=== PATIENT | male | born 1960 | race Caucasian/White ===

== ENCOUNTER 2024-08-15 10:41 | Inpatient (IN) | payer MEDICARE, SELFPAY ==
[2024-08-15] VITALS (10 sets, daily range): BP systolic 106–144; BP diastolic 59–74; PULSE 71–101; RESP 10–21; TEMP 36.8–37; O2SAT 99–100; BMI 22.9
--- NOTE | 2024-08-15 11:02 | XR_ITS ---
Examination: CT abdomen and pelvis without contrast. Coronal 3-D reconstructions. Sagittal 2-D reconstructions. Date and time of exam:August 15, 2024 1542 hours INDICATIONS: Mid abdominal pain beginning 3 days ago CTDI: vol (mGy): 5.24 DLP: (mGycm): 7 Technique: Axial images of the abdomen have been obtained, 3 mm slice thickness Intravenous contrast material has not been administered. Low dose protocols were performed. One or more of the following dose reduction techniques were used; automated exposure control, adjustment of the mA and/or KV according to patient size, use of iterative reconstruction technique. Findings: Liver is irregular in contour Low density in the lower right lobe of the liver, 30 mm, axial image 64 Cholelithiasis, gallbladder wall appears thickened Suspicious for minimal edema around the pancreas Trace ascites Bilateral 1 to 3 mm renal calculi, no hydronephrosis Aorta normal size Portosystemic collateral vessels medial to the spleen No bowel obstruction Transverse prostate dimension 4.1 cm No bladder mass or bladder calculi Significant osteopenia Advanced degenerative disc disease L1-L2, L3-L4 IMPRESSION: Cirrhosis Recommend elective MRI liver follow-up pre and postcontrast to exclude 30 mm right lobe liver lesion Recommend hepatobiliary sonography to exclude cholecystitis and to assess for minimal peripancreatic edema Nonobstructing bilateral renal calculi
--- NOTE | 2024-08-15 11:02 | PD.EDRME ---
Rapid Medical Screening Exam RME Arrival date/time: 08/15/24 10:41 63-year-old male with no known medical history presents to the emergency room with a chief complaint of 7 out of 10 abdominal pain, vomiting blood, and dark tarry stool x 3 days I have greeted and performed a focused initial assessment of this patient. A comprehensive ED assessment and evaluation of the patient, analysis of all test results, and completion of the medical decision making process will be conducted by additional ED providers. Chief Complaint: Nausea/Vomiting/Diarrhea Time Seen by Provider: 08/15/24 10:55 Vital signs: Vital Signs Temperature 98.6 F 08/15/24 10:56 Pulse Rate 101 H 08/15/24 10:56 Respiratory Rate 16 08/15/24 10:56 Blood Pressure 106/70 08/15/24 10:56 Pulse Oximetry (%) 100 08/15/24 10:56 Oxygen Delivery Method Room Air 08/15/24 10:56 Vital signs reviewed by provider: Yes
[2024-08-15 11:33] LABS: Basophils # (Auto) 0.1 Thou/mm3 (0.0-0.2); Basophils % (Auto) 1 % (0-2.5); Eosinophils # (Auto) 0.2 Thou/mm3 (0.0-0.5); Eosinophils % (Auto) 1 % (0-10); Hematocrit 23.8 % (41.0-53.0); Immature Granulocytes % (Auto) 0 % (0-0); Immature Granulocytes Auto 0.03 Thou/mm3 (0.00-0.00); Lymphocytes # (Auto) 3.4 Thou/mm3 (1.0-4.8); Lymphocytes % (Auto) 31 % (10-50); Mean Corpuscular Hemoglobin 31.3 pg (25.0-35.0); Mean Corpuscular Volume 92 fL (80-100); Monocytes # (Auto) 0.8 Thou/mm3 (0.0-0.8); Monocytes % (Auto) 7 % (0-12); Neutrophils # (Auto) 6.7 Thou/mm3 (1.8-7.7); Neutrophils % (Auto) 60 % (37-80); Nucleated Red Blood Cell % 0 /100 WBC (0); Platelet Count 150 Thou/mm3 (140-440); RDW Standard Deviation 43.3 fL (35.1-43.9); Red Blood Count 2.59 Miln/mm3 (4.50-5.90); White Blood Count 11.2 Thou/mm3 (3.8-10.6)
[2024-08-15 11:43] LABS: Hemoglobin 8.1 g/dL (13.5-16.0)
[2024-08-15 11:44] LABS: INR 1.2 (0.9-1.3); Partial Thromboplastin Time 25.5 Seconds (22.0-36.0)
[2024-08-15 11:47] LABS: Alanine Aminotransferase 50 U/L (10-49); Albumin/Globulin Ratio 1.1 (1.2-2.2); Alkaline Phosphatase 62 U/L (46-116); Anion Gap 8 (7-16); Aspartate Amino Transferase 63 U/L (0-34); BUN/Creatinine Ratio 31 Ratio (12-20); Bilirubin,Total 1.1 mg/dL (0.3-1.2); Blood Urea Nitrogen 28 mg/dL (9-23); Calcium (Corrected) 9.8 mg/dL (8.5-10.1); Carbon Dioxide 22.9 mMol/L (20.0-31.0); Chloride 108 mMol/L (98-107); Creatinine (Component) 0.9 mg/dL (0.6-1.3); Globulin 2.8 gm/dL (2.3-3.5); Glucose 137 mg/dL (74-106); Osmolality,Calculated 285 (275-295); Sodium 139 mMol/L (136-145); Total Protein 5.8 gm/dL (5.7-8.2); eGFR > 60 See Note
--- NOTE | 2024-08-15 16:35 | PD.EDRME ---
Rapid Medical Screening Exam RME Arrival date/time: 08/15/24 10:41 08/15/24 10:41 63-year-old male with no known medical history presents to the emergency room with a chief complaint of 7 out of 10 abdominal pain, vomiting blood, and dark tarry stool x 3 days I have greeted and performed a focused initial assessment of this patient. A comprehensive ED assessment and evaluation of the patient, analysis of all test results, and completion of the medical decision making process will be conducted by additional ED providers. Chief Complaint: Nausea/Vomiting/Diarrhea Time Seen by Provider: 08/15/24 10:55 Vital signs: Vital Signs Temperature 98.6 F 08/15/24 10:56 Pulse Rate 101 H 08/15/24 10:56 Respiratory Rate 16 08/15/24 10:56 Blood Pressure 106/70 08/15/24 10:56 Pulse Oximetry (%) 100 08/15/24 10:56 Oxygen Delivery Method Room Air 08/15/24 10:56 RME Narrative: 08/15/24 10:41 63-year-old male with no known medical history presents to the emergency room with a chief complaint of 7 out of 10 abdominal pain, vomiting blood, and dark tarry stool x 3 days I have greeted and performed a focused initial assessment of this patient. A comprehensive ED assessment and evaluation of the patient, analysis of all test results, and completion of the medical decision making process will be conducted by additional ED providers.
--- NOTE | 2024-08-15 16:37 | EDNOTE_ITS ---
ED GI Bleed RME/HPI General Chief complaint: Nausea/Vomiting/Diarrhea Stated complaint: VOMITING BLOOD, DARK STOOL W/ BRIGHT RED BLOOD Time Seen by Provider: 08/15/24 10:55 Arrival date/time: 08/15/24 10:41 RME / HPI RME / HPI Narrative: Patient is a 63 years old male with PMH of alcohol abuse presented to the ED with a chief complaint of 7 out of 10 abdominal pain, vomiting blood, and dark tarry stool since Tuesday. He reports he was heavy drinker for 15 years but stopped several years ago and now drinks beer socially. He reports emesis were bloody and stool was black with some blood in it. He denies chest pain, SOB, fever or chills. He denies prior blood transfusions or using IV drugs. He smokes marijuana sometimes. Related Data Previous Rx's ?Medication ?Instructions ?Recorded propranolol 10 mg tablet 10 mg PO BID 1 month #60 tab s 08/20/24 Allergies Allergy/AdvReac Type Severity Reaction Status Date / Time No Known Allergies Allergy Verified 08/15/24 10:45 Review of Systems Review of Systems Systems Reviewed: All systems reviewed, normal except as documented Past Medical History Social History SMOKING STATUS: Former smoker SUBSTANCE USE: does not use ALCOHOL: Never ED Exam Narrative Physical exam: Gen: Well-developed and well-nourished male. HEENT: NCAT, PERRLA, EOMI, MMM, anicteric conjunctivae. CVS: normal S1 and S2. RRR. No M/R/G. Resp: CTA B/L. No rhonchi, rales, crackles or wheezing. Abd: soft, non-tender, non-distended. BS+ in all 4 quadrants. MSK: Good ROM in BUE & BLE. No edema or rash. Neuro: CN II-XII grossly intact. Strength 5/5 in BUE & BLE. Alert and oriented x3. Psych: appropriate mood and affect. Course Course Course Narrative: 1800: GI consulted, given protonix 80 mg IV and started on octreotide drip. Recommended admission for further evaluation and EGD. Quality Measures none Orders Category Date Time Status COVID-19 Screening Questionnaire NOW Care 08/15/24 18:08 Completed Decision to Admit X1 Care 08/15/24 18:08 Completed Consult to Gastroenterology Stat Cons 08/15/24 17:[address] abdomen pelvis wo con Stat Exams 08/15/24 11:02 Completed CBC Stat Lab 08/15/24 11:11 Completed CMP [Comprehensive Metabolic Panel] Stat Lab 08/15/24 11:11 Completed Hepatitis Acute Panel Stat Lab 08/15/24 11:11 Completed PT [Prothrombin Time with INR] Stat Lab 08/15/24 11:11 Completed PTT [Partial Thromboplastin Time] Stat Lab 08/15/24 11:11 Completed Path Review Blood Smear Stat Lab 08/15/24 11:11 Completed Reticulocyte Count Stat Lab 08/15/24 11:11 Completed Type and Screen Stat Lab 08/15/24 11:11 Completed Octreotide Acet Inj [SandoSTATIN Inj] Med 08/15/24 18:07 Discontinued 50 mcg IV X1 ONE Pantoprazole Inj [Protonix Inj] Med 08/15/24 18:07 Discontinued 80 mg IV X1 ONE Sodium Chloride 0.9% [Ns] 100 ml Med 08/15/24 18:15 Discontinued Octreotide Acet Inj [SandoSTATIN Inj] 1,000 mcg IV 50 mcg/hr Vital Signs Vital signs: Vital Signs Temperature 98.6 F 08/15/24 10:56 Pulse Rate 101 H 08/15/24 10:56 Respiratory Rate 16 08/15/24 10:56 Blood Pressure 106/70 08/15/24 10:56 Pulse Oximetry (%) 100 08/15/24 10:56 Oxygen Delivery Method Room Air 08/15/24 10:56 GI Bleed Patient data External records reviewed:: None (no previous visits) Clinical information provided by:: patient Social determinants that could affect healthcare access:: none Patient has the following chronic illnesses:: alcohol abuse How is presenting disease/condition affected by chronic disease/condition?: caused by Evaluation data The following diagnostics were reviewed and interpreted by me:: lab results and radiology exam(s) Lab and/or radiology exams considered but not ordered:: none Interpretation Summary: Procedure(s): CT abdomen pelvis wo con Accession Number(s): [id number] cc: Renzo Paz; Vladislav Vazquez MD; Josue Simmons MD~ Examination: CT abdomen and pelvis without contrast. Coronal 3-D reconstructions. Sagittal 2-D reconstructions. Date and time of exam:August 15, 2024 1542 hours INDICATIONS: Mid abdominal pain beginning 3 days ago CTDI: vol (mGy): 5.24 DLP: (mGycm): 7 Technique: Axial images of the abdomen have been obtained, 3 mm slice thickness Intravenous contrast material has not been administered. Low dose protocols were performed. One or more of the following dose reduction techniques were used; automated exposure control, adjustment of the mA and/or KV according to patient size, use of iterative reconstruction technique. Findings: Liver is irregular in contour Low density in the lower right lobe of the liver, 30 mm, axial image 64 Cholelithiasis, gallbladder wall appears thickened Suspicious for minimal edema around the pancreas Trace ascites Bilateral 1 to 3 mm renal calculi, no hydronephrosis Aorta normal size Portosystemic collateral vessels medial to the spleen No bowel obstruction Transverse prostate dimension 4.1 cm No bladder mass or bladder calculi Significant osteopenia Advanced degenerative disc disease L1-L2, L3-L4 IMPRESSION: Cirrhosis Recommend elective MRI liver follow-up pre and postcontrast to exclude 30 mm right lobe liver lesion Recommend hepatobiliary sonography to exclude cholecystitis and to assess for minimal peripancreatic edema Nonobstructing bilateral renal calculi Dictated By: Josue Simmons MD Medications / Prescriptions Medications or Prescriptions considered but not ordered:: none Medication administrations:: Medication Administration History Discontinued Medications Acetaminophen (Acetaminophen 325 Mg Tablet) 650 mg PO Q6H PRN PRN Reason: Fever >100 or pain 1-3 Stop: 09/14/24 20:06 Diphenhydramine HCl (Diphenhydramine Inj 50 Mg/Ml Vial) 25 mg IV [id number] PRN PRN Reason: MODERATE SEDATION Stop: 08/16/24 10:49 Diphenhydramine HCl (Diphenhydramine Inj 50 Mg/Ml Vial) Confirm Administered Dose 50 mg .ROUTE .STK-MED ONE Stop: 08/16/24 08:49 Fentanyl Citrate (Fentanyl Cit Inj 50 Mcg/Ml Amp 2ml) 50 mcg IV Q2M PRN PRN Reason: MODERATE SEDATION Stop: 08/16/24 10:49 Fentanyl Citrate (Fentanyl Cit Inj 50 Mcg/Ml Amp 2ml) Confirm Administered Dose 100 mcg .ROUTE .STK-MED ONE Stop: 08/16/24 08:49 Folic Acid (Folic Acid 1 Mg Tablet) 1 mg PO BID PAULA Stop: 08/21/24 08:59 Last Admin: 08/19/24 08:07 Dose: 1 mg Documented By: Admin: 08/18/24 21:25 Dose: 1 mg Documented By: Admin: 08/18/24 08:27 Dose: 1 mg Documented By: Admin: 08/17/24 20:35 Dose: 1 mg Documented By: Admin: 08/17/24 08:19 Dose: 1 mg Documented By: Admin: 08/16/24 20:16 Dose: 1 mg Documented By: Admin: 08/16/24 08:19 Dose: Not Given Documented By: TIKA Non-Admin Reason: NPO Octreotide Acetate 1,000 mcg/ (Sodium Chloride) 102 mls @ 5.1 mls/hr IV .Q20H ONE; Protocol Stop: 08/16/24 14:14 Last Admin: 08/15/24 18:56 Dose: 50 mcg/hr, 5.1 mls/hr Documented By: LARRY Pantoprazole Sodium (Protonix/Ns 80mg Iv Premix) 80 mg in 100 mls @ 10 mls/hr IV Q10H PAULA Stop: 08/18/24 18:09 Last Admin: 08/18/24 07:16 Dose: 10 mls/hr Documented By: Infusion: 08/18/24 07:16 Dose: Infused Documented By: Admin: 08/17/24 23:50 Dose: 10 mls/hr Documented By: Infusion: 08/17/24 23:50 Dose: Infused Documented By: Admin: 08/17/24 14:17 Dose: 10 mls/hr Documented By: Infusion: 08/17/24 13:53 Dose: Infused Documented By: Admin: 08/17/24 03:53 Dose: 10 mls/hr Documented By: Infusion: 08/17/24 01:42 Dose: Infused Documented By: Admin: 08/16/24 15:42 Dose: 10 mls/hr Documented By: Infusion: 08/16/24 15:00 Dose: Infused Documented By: Admin: 08/16/24 05:00 Dose: 10 mls/hr Documented By: Infusion: 08/16/24 05:00 Dose: Infused Documented By: Admin: 08/15/24 20:25 Dose: 10 mls/hr Documented By: THIERRY Ceftriaxone Sodium/Dextrose (Rocephin/D5w 1gm Iv Premix) 1 gm in 50 mls @ 100 mls/hr IV QDAY PAULA Stop: 08/23/24 08:59 Last Admin: 08/17/24 08:19 Dose: 100 mls/hr Documented By: Infusion: 08/16/24 08:54 Dose: Infused Documented By: Admin: 08/16/24 08:24 Dose: 100 mls/hr Documented By: TIKA Octreotide Acetate 1,000 mcg/ (Sodium Chloride) 102 mls @ 5.1 mls/hr IV .Q20H PAULA; Protocol Stop: 08/20/24 09:29 Last Admin: 08/20/24 05:20 Dose: 50 mcg/hr, 5.1 mls/hr Documented By: Infusion: 08/20/24 05:20 Dose: Infused Documented By: Admin: 08/19/24 10:28 Dose: 50 mcg/hr, 5.1 mls/hr Documented By: Infusion: 08/19/24 07:34 Dose: Infused Documented By: Admin: 08/18/24 11:34 Dose: 50 mcg/hr, 5.1 mls/hr Documented By: Infusion: 08/18/24 10:17 Dose: Infused Documented By: Admin: 08/17/24 14:17 Dose: 50 mcg/hr, 5.1 mls/hr Documented By: Infusion: 08/17/24 11:14 Dose: Infused Documented By: Admin: 08/16/24 15:14 Dose: 50 mcg/hr, 5.1 mls/hr Documented By: TIKA Magnesium Sulfate (Magnesium Sulfate Ivpb) 4 gm in 50 mls @ 12.5 mls/hr IV X1 ONE Stop: 08/17/24 12:00 Last Admin: 08/17/24 09:13 Dose: 12.5 mls/hr Documented By: DORIS Lorazepam (Lorazepam 0.5 Mg Tablet) 0.5 mg PO Q4HR PRN PRN Reason: CIWA Score 2-6 Stop: 08/21/24 08:08 Lorazepam (Lorazepam 0.5 Mg Tablet) 1 mg PO Q4HR PRN PRN Reason: CIWA SCORE 7-11 Stop: 08/21/24 08:08 Lorazepam (Lorazepam 0.5 Mg Tablet) 2 mg PO Q4HR PRN PRN Reason: CIWA SCORE 12-15 Stop: 08/21/24 08:08 Lorazepam (Lorazepam 2 Mg/Ml Vial) 1 mg IV X1 PRN PRN Reason: Breakthrough Agitation Midazolam HCl (Midazolam Inj 1 Mg/Ml Vial 2 Ml) 2 mg IV Q2M PRN PRN Reason: Moderate Sedation Stop: 08/16/24 10:49 Midazolam HCl (Midazolam Inj 1 Mg/Ml Vial 2 Ml) Confirm Administered Dose 4 mg .ROUTE .STK-MED ONE Stop: 08/16/24 08:49 Octreotide Acetate (Octreotide Acet Inj 50 Mcg/Ml Vial) 50 mcg IV X1 ONE Stop: 08/15/24 18:08 Last Admin: 08/15/24 18:55 Dose: 50 mcg Documented By: LARRY Ondansetron HCl (Ondansetron Inj 2 Mg/Ml Inj 2 Ml) 4 mg IV Q6H PRN; Protocol PRN Reason: NAUSEA OR VOMITING Stop: 09/14/24 20:06 Pantoprazole Sodium (Pantoprazole Inj 40 Mg Vial) 80 mg IV X1 ONE Stop: 08/15/24 18:08 Last Admin: 08/15/24 18:51 Dose: 80 mg Documented By: LARRY Thiamine HCl (Thiamine 100 Mg Tablet) 100 mg PO BID PAULA Stop: 08/21/24 08:59 Last Admin: 08/19/24 08:07 Dose: 100 mg Documented By: Admin: 08/18/24 21:25 Dose: 100 mg Documented By: Admin: 08/18/24 08:27 Dose: 100 mg Documented By: Admin: 08/17/24 20:35 Dose: 100 mg Documented By: Admin: 08/17/24 08:18 Dose: 100 mg Documented By: Admin: 08/16/24 20:16 Dose: 100 mg Documented By: Admin: 08/16/24 08:19 Dose: Not Given Documented By: TIKA Non-Admin Reason: NPO see above if any Consultations Consultation(s) initiated? (list below): Yes Consultation #1 (Physician, Specialty, Details): GI, Dr Mckeon, GIB. Diagnosis GI bleed differential diagnosis: hemorrhoids, esophageal varices, gastritis, Upper gastrointestinal hemorrhage and Lower gastrointestinal hemorrhage Most likely diagnosis given after review of the tests above:: Upper GI bleeding Admission Indicated Admission indicated?: indicated Explain why admission is indicated or not indicated:: GI bleeding, needs work up and EGD. Admission Request Was there a request for admission?: Yes Admission Attestation Admission request attestation: Discussed case with [] from Hospitalist service regarding admission. Discussed patients ED course, exam findings, labs, and radiology results. The Hospitalist [agrees,declines] to accept the patient for admission. Disposition Plan Disposition Plan: Admit Discharge Plan Plan Patient Disposition: Admit Acute Care w/in Hospital Patient condition on transfer: Stable Problem List Clinical Impression: Upper gastrointestinal hemorrhage Patient/Caregiver Discharge Instructions Diet Instructions: Avoid alcohol, as it can increase the risk of bleeding. Limit fatty and fried foods, as they can put stress on the liver. Avoid spicy and acidic foods, which can irritate the esophagus. Eat small, frequent meals instead of large ones. Chew food thoroughly before swallowing. PA/CASH APPLICATIONS ANALYST Supervising Physician PA/CASH APPLICATIONS ANALYST Supervising Physician: Delvis Riggs ENP, MD Attestation MD Attestation The patient was seen by the PGY-2. I, the supervising physician also encountered and examined the patient, remaining available for consultation as needed. With the PGY-2, I participated in the analysis and supervised the managment, treatment plan, medical decision making and documentation. I agree with the plan and documentation.
--- NOTE | 2024-08-15 17:05 | PC.NURSE ---
PT C/O ABD PAIN THAT STARTED 4 DAYS AGO WITH STOOL BEING BLACK THEN VOMITING BLOOD.
--- NOTE | 2024-08-15 17:07 | PC.NURSE ---
DR. ZACHARY Garcia. RESIDENT IN TO SEE PT
[2024-08-15] MEDS: PANTOPRAZOLE INJ 40 MG VIAL 80 MG IV (18:51)
[2024-08-15] MEDS: OCTREOTIDE ACET INJ 50 mCg/ML VIAL IV (18:55)
[2024-08-15] MEDS: OCTREOTIDE ACET INJ 1,000 MCG in SODIUM CHLORIDE 0.9% 100 ML 5.1 MCG IV (18:56)
--- NOTE | 2024-08-15 19:13 | EVENTNT_ITS ---
Documentation for date of: 08/15/24 Event Note Event Note: A 63-year-old male presented to the ER with the chief complaint of abdominal pain and hematemesis. He reports the onset of severe cramping and stabbing abdominal pain on Tuesday evening, followed by two episodes of hematemesis with fresh red blood and partially digested dark food. He also noted melena mixed with red blood in the stool, and subsequent episodes of diarrhea with continued black stools and blood. He describes progressive weakness, dizziness, shortness of breath, fever with chills and sweats, and poor oral intake over the following days. He attempted to manage symptoms at home but sought care on Tuesday due to worsening weakness. The patient has a history of alcohol abuse and reported daily or near-daily beer consumption since relapsing in 2016, following five years of sobriety. He used methamphetamine and cocaine in the past but has been abstinent from those substances for 12 years. He is not on any medications and has not been under routine medical care. Surgical history includes hernia repair in adolescence and evacuation of cranial blood clots following a head trauma in 1993. He reports nocturia and decreased urinary stream suggestive of BPH. 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 No known drug allergies. Last alcohol intake was Tuesday. In the ER, vital signs recorded as temp 98.6 F, HR 101, RR 16, BP 106/70 mmHg. Labs revealed WBC 11.2, Hb 8.1, Plt 150, INR 1.2, Na 139, K 4, BUN 28, Creatinine 0.9, Glucose 137, AST 63, ALT 50, Albumin 3. CT demonstrated cirrhosis, a 30 mm low-density lesion in the lower right hepatic lobe, and trace ascites. GI was consulted, and the patient was admitted for further management. Upper GI Bleed #Assessment: - Hematemesis, melena, hypotension with tachycardia (HR 101, BP 106/70) - Anemia (Hb 8.1), elevated BUN (28), normal Cr (0.9) ? BUN/Cr ratio >20 suggestive of UGIB - History of alcohol use disorder, cirrhosis on imaging, and low albumin (3.0) - Elevated AST > ALT; possible alcoholic liver disease - Hepatic lesion (30 mm low-density), trace ascites ? possible HCC or regenerative nodule #Plan: - Telemetry - NPO - Initiate IV fluid resuscitation - Transfuse PRBCs for Hb <7or hemodynamic instability - Start IV pantoprazole 80 mg bolus followed by continuous infusion (8 mg/hr) - Start octreotide IV infusion - Administer ceftriaxone 1g IV daily x5 days (SBP prophylaxis in suspected variceal bleed) - Type and crossmatch - GI consult obtained - Hepatitis panel, AFP level - Elective MRI liver follow-up - Psychiatric Nurse Practitioner patient on alcohol cessation; social work consult for substance use re sources
[2024-08-15 19:26] LABS: Hepatitis A Antibody IgM Non Reactive (Non React); Hepatitis B Core Antibody IgM Non Reactive (Non React); Hepatitis B Surface Antigen Non Reactive (Non React); Hepatitis C Antibody Reactive (Non React)
--- NOTE | 2024-08-15 19:32 | PD.EDADDENDU ---
Emergency Room Addendum Addendum Narrative: 1800: Care assumed from Dr. Powers, attending Dr. Mast. Past medical, surgical, social and family history reviewed. Vitals and home medications reviewed. Results and treatment plan discussed. I will assume the care of the patient at this time and will follow the patient, pending re-evaluation. Please refer to the emergency department record for history and examination from initi
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
[2024-08-15] MEDS: PANTOPRAZOLE/NS 80MG IV PREMIX 80 MG/100 ML BAG 10 MG IV (20:25)
[2024-08-15 20:36] LABS: Immature Reticulocyte Fraction 23.9 % (2.3-13.4); Reticulocyte % (Auto) 2.4 % (0.5-1.5); Reticulocyte Absolute Auto 63.4 Biln/L (25.0-75.0); Reticulocyte Hgb Content 36.5 pg (28.0-35.0)
[2024-08-15 21:10] LABS: Path Review Blood Smear Sent to Pathologist
--- NOTE | 2024-08-15 22:07 | PD.IMCONS ---
HPI Data of Consult Requesting Physician: Marcus Moy MD Primary Care Provider: Vladislav Vazquez MD Consult Narrative Reason for consult: Hematemesis, melena. History of present illness: 63 years old male seen in the ER at the request of the ER team with hematemesis and melanotic stools He does drink moderately the last time he drank was Tuesday about 4 beers He has been drinking for many years Admitting hemoglobin hematocrit was 8.1 and 23.8 with a platelet count of 158,000 BUN [address] scan of the abdomen pelvis without contrast showed 30 mm right lobe lesion cirrhosis of the liver Total bilirubin 1.1 AST ALT 63 and 50 and alk phos of 62 cc:: cc: Marcus Moy MD Review of Systems Review of Systems Systems Reviewed: All systems reviewed, normal except as documented Meds Home Medications and Allergies Allergies Allergy/AdvReac Type Severity Reaction Status Date / Time No Known Allergies Allergy Verified 08/15/24 10:45 Exam Vital Signs Temp Pulse Resp BP Pulse Ox O2 Del Method 98.2 F 89 15 132/65 H 100 Room Air 08/15/24 18:16 08/15/24 18:16 08/15/24 18:16 08/15/24 18:16 08/15/24 18:16 08/15/24 18:16 Constitutional Comments: Alert and oriented Routine Respiratory Exam Comments: Normal to auscultation Routine Abdominal Exam Comments: Soft nontender Results Labs 08/15/24 11:11 08/15/24 11:11 Labs: Short CBC 08/15/24 Range/Units 11:11 WBC 11.2 H (3.8-10.6) Thou/mm3 Hgb 8.1 L (13.5-16.0) g/dL Hct 23.8 L (41.0-53.0) % Plt Count 150 (140-440) Thou/mm3 BMP 08/15/24 11:11 Sodium 139 Potassium 4.0 Chloride 108 H Carbon Dioxide 22.9 BUN 28 H Creatinine 0.9 Glucose 137 H Calcium 9.0 Liver Function 08/15/24 Range/Units 11:11 Total Bilirubin 1.1 (0.3-1.2) mg/dL AST 63 H (0-34) U/L ALT 50 H (10-49) U/L Alkaline Phosphatase 62 (46-116) U/L Albumin 3.0 L (3.4-4.8) gm/dL Assessment and Plan Additional Assessment & Plan Additional Plan: # Hematemesis # melena Plan IV Protonix octreotide 50 mcg IV push and then 50 mcg/h infusion serial CBC Transfuse if the hemoglobin drops below 7 g Fiberoptic esophagogastroduodenoscopy with possible biopsy possible therapeutic intervention with intravenous moderate sedation Informed consent obtained the patient is scheduled for tomorrow morning at 830 Other medical problems include # Cirrhotic liver disease secondary to alcohol # 30 mm lesion in the right lobe of the liver AFP MRI scan of the liver with and without contrast 4 PHASE Advised complete abstinence from alcohol Avoid NSAIDs Thank you very much for the opportunity to participate in the care of this patient
[2024-08-15 22:26] LABS: Iron 24 mcg/dL (65-175); Percent Iron Saturation 9 % (20-55); Total Iron Binding Capacity 265 mcg/dL (250-425); Unsaturated Iron Binding 241 (225-295)
--- NOTE | 2024-08-15 23:23 | PC.NURSE ---
Report called. Pt taken to rm 358 by myself on cardiuac monitor.
[2024-08-16] VITALS (24 sets, daily range): BP systolic 104–142; BP diastolic 60–88; PULSE 65–87; RESP 8–20; TEMP 36.2–37; O2SAT 96–100; BMI 19.1
[2024-08-16] MEDS: PANTOPRAZOLE/NS 80MG IV PREMIX 80 MG/100 ML BAG 10 MG IV ×2 (05:00→15:42)
[2024-08-16 05:41] LABS: Basophils % (Auto) 1 % (0-2.5); Eosinophils # (Auto) 0.1 Thou/mm3 (0.0-0.5); Eosinophils % (Auto) 3 % (0-10); Immature Granulocytes % (Auto) 0 % (0-0); Immature Granulocytes Auto 0.01 Thou/mm3 (0.00-0.00); Lymphocytes # (Auto) 2.2 Thou/mm3 (1.0-4.8); Lymphocytes % (Auto) 42 % (10-50); Mean Corpuscular HGB Conc 34.2 g/dl (31.0-37.0); Mean Corpuscular Hemoglobin 31.7 pg (25.0-35.0); Mean Corpuscular Volume 93 fL (80-100); Monocytes # (Auto) 0.5 Thou/mm3 (0.0-0.8); Monocytes % (Auto) 9 % (0-12); Neutrophils # (Auto) 2.4 Thou/mm3 (1.8-7.7); Neutrophils % (Auto) 46 % (37-80); Nucleated Red Blood Cell % 0 /100 WBC (0); Platelet Count 89 Thou/mm3 (140-440); RDW Standard Deviation 43.8 fL (35.1-43.9); Red Blood Count 2.18 Miln/mm3 (4.50-5.90); White Blood Count 5.1 Thou/mm3 (3.8-10.6)
[2024-08-16 05:52] LABS: INR 1.3 (0.9-1.3); Partial Thromboplastin Time 26.2 Seconds (22.0-36.0); Prothrombin Time 13.8 Seconds (9.0-12.2)
[2024-08-16 05:55] LABS: Hemoglobin 6.9 g/dL (13.5-16.0)
[2024-08-16 05:56] LABS: Hematocrit 20.2 % (41.0-53.0)
[2024-08-16 06:13] LABS: Alanine Aminotransferase 51 U/L (10-49); Albumin, Serum 2.6 gm/dL (3.4-4.8); Albumin/Globulin Ratio 1.1 (1.2-2.2); Alkaline Phosphatase 56 U/L (46-116); Anion Gap 8 (7-16); Aspartate Amino Transferase 69 U/L (0-34); BUN/Creatinine Ratio 26 Ratio (12-20); Bilirubin,Total 1.1 mg/dL (0.3-1.2); Blood Urea Nitrogen 26 mg/dL (9-23); Calcium 8.1 mg/dL (8.3-10.6); Calcium (Corrected) 9.2 mg/dL (8.5-10.1); Carbon Dioxide 24.2 mMol/L (20.0-31.0); Cardiac Risk Estimate 4.2 RATIO (4.0-6.7); Chloride 109 mMol/L (98-107); Cholesterol 84 mg/dL (132-200); Globulin 2.3 gm/dL (2.3-3.5); Glucose 127 mg/dL (74-106); HDL Cholesterol 20 mg/dL (40-60); LDL Cholesterol,Calculated 45 mg/dL (0-130); Magnesium 1.8 mg/dL (1.6-2.6); Osmolality,Calculated 287 (275-295); Phosphorous 3.2 mg/dL (2.4-5.1); Potassium 4.1 mMol/L (3.4-5.1); Sodium 141 mMol/L (136-145); Thyroid Stimulating Hormone 0.37 uIU/mL (0.55-4.78); Total Protein 4.9 gm/dL (5.7-8.2); Triglycerides 95 mg/dL (30-150); eGFR > 60 See Note
[2024-08-16 07:38] LABS: Glucose Estimated Average 111 mg/dL (80-131); Hemoglobin A1C 5.5 % Hgb (4.8-6.0)
[2024-08-16] MEDS: cefTRIAXone/D5w 1gm IV premix 1 GM/50 ML BAG IV (08:24)
--- NOTE | 2024-08-16 08:52 | XR_ITS ---
Examination: MRI abdomen with intravenous contrast. MRI abdomen without intravenous contrast. Date and time of exam: August 16, 2024 1653 hours INDICATIONS: Abdominal pain 3 days, diagnosis cirrhosis, 30 mm low-density right lobe liver lesion on CT abdomen and pelvis study August 15, 2024 Technique: Multiple axial, sagittal and coronal sections of the abdomen obtained. Transverse images, TR 6020, TE 107. T1 weighted transverse images, TR 582, TE 9.5. T2-weighted sagittal images, TR 4000, TE 105. T2-weighted sagittal images, TR 4000, TE 5. Coronal images, TR 4210, TE 107. Axial and coronal images are obtained post 19 cc intravenous injection, gadolinium. Findings: Cirrhosis, liver nodular in contour Precontrast images do not demonstrate a definite right lobe or left lobe liver lesion Prominent splenomegaly Small gallstones Marked wall thickening and edema involving the gallbladder No common hepatic or common bile duct stones Mild ascites Postcontrast images do not confirm an enhancing liver lesion No enhancing renal lesion, no abdominal lymphadenopathy Abdominal aorta normal size IMPRESSION: Cirrhosis, no liver lesions confirmed Prominent splenomegaly Cholelithiasis, marked wall thickening and edema involving the gallbladder, assessment of the gallbladder wall limited secondary to the patient's ascites Consider HIDA scan follow-up to confirm cystic duct obstruction
[2024-08-16 08:54] LABS: HIV (1&2) Antibody Rapid Non-Reactive
--- NOTE | 2024-08-16 09:33 | SUR.PHASEI ---
0933: Pt. wakes to name then drifts back to sleep, vitals stable, breathing unlabored, no signs of distress, no dressing in place, no active bleed noted, report received from Nida SHOEMAKER.
--- NOTE | 2024-08-16 09:57 | SUR.PHASEI ---
0957: Pt. AAOx4, vitals stable, breathing unlabored, no complaint of pain or nausea, no dressing in place, no active bleed noted, pt. tolerated sips of water well, gave report to Eufemia SHOEMAKER prior to transfer to room 358.
[2024-08-16 10:54] LABS: Free T4 (Free Thyroxine) 0.86 ng/dL (0.89-1.76)
--- NOTE | 2024-08-16 13:37 | ESPR_ITS ---
<Statement entered by Judy Cruz MD - 08/17/24 07:44> Patient was seen and examined by me personally. I have directly supervised and reviewed documentation by the team resident and agree with its findings with any exceptions or additional findings as below. Plan of care was discussed with the attending, Dr. Howell. Overnight admission. Patient is a 63-year-old male with past medical history of polysubstance use disorder, alcohol use disorder, hepatitis C, and cirrhosis who presented to the hospital on 08/15/2024 with melena and hematemesis and patient was subsequently admitted for upper GI bleed likely secondary to alcohol induced cirrhosis. Patient underwent EGD which showed grade 2 esophageal varices which were subsequently banded. Patient will require 5 days of octreotide infusion. Judy Cruz, PGY-2 Documentation for date of: 08/16/24 Subjective Subjective Interval history: 08/16/2024: Overnight admission for 63-year-old male with past medical history of polysubstance use disorder, alcohol use disorder, hepatitis C, cirrhosis who presented to the hospital with melena and hematemesis; moreover, admitted for upper GI bleed likely secondary to alcohol induced cirrhosis. Patient completed EGD with Dr. Mckeon which showed grade 2 esophageal varices which were banded, gastritis with hemorrhage. Patient will require IV octreotide drip for 5 days and diet will be slowly advanced as tolerated. Patient will obtain an MRI abdomen with and without contrast for high suspicion of liver neoplasm as noted by increased AFP, high risk factor with cirrhosis and hepatitis C. Patient could benefit from infectious disease workup and treatment for hepatitis C. Will continue to monitor the patient for any acute changes. Exam Vital Signs Temp Pulse Resp BP Pulse Ox O2 Del Method O2 Flow Rate 97.8 F 73 20 121/82 99 Room Air 3 08/16/24 12:48 08/16/24 12:48 08/16/24 12:48 08/16/24 12:48 08/16/24 12:48 08/16/24 12:00 08/16/24 09:25 Narrative Exam Physical Exam: General: Awake, pleasant elderly male, appears in stated age HEENT: Dry mucous membranes, conjunctiva clear, EOMI, PERRLA, poor dentition Cardiovascular: Ejection systolic murmur heard best over left upper sternal border, radiates to the carotids, radial pulses +2 bilat, RRR Pulmonary: CTAB bilat no cough, no wheezing GI: No tenderness to light or deep palpitation, no guarding, rigidity, rebound tenderness or distension Extremities: No presence of trace or pitting edema in lower extremities bilaterally, dorsalis pedis pulses +2 bilaterally, no track conte visualized Neuro: AAOx3, no focal motor or sensory deficits in the UE or LE bilat Objective Labs 08/16/24 04:35 08/16/24 04:35 Labs: Laboratory Results - last 24 hr 08/15/24 08/16/24 11:11 04:35 WBC 5.1 D RBC 2.18 L Hgb 6.9 L* Hct 20.2 L* MCV 93 MCH 31.7 MCHC 34.2 RDW Std Deviation 43.8 Plt Count 89 L D Neut % (Auto) 46 Lymph % (Auto) 42 [place] % (Auto) 9 Eos % (Auto) 3 Baso % (Auto) 1 Neut # (Auto) 2.4 Lymph # (Auto) 2.2 [place] # (Auto) 0.5 Eos # (Auto) 0.1 Baso # (Auto) 0.0 Immature Gran # (Auto) 0.01 H Absolute Nucleated RBC 0.00 Immature Gran % 0 Nucleated RBC % 0 Smear Path Review Sent to Pathologist Retic Count (auto) 2.4 H Absolute Retic 63.4 Immature Retic Fraction 23.9 H Retic Hgb Content CHr 36.5 H PT 13.8 H INR 1.3 APTT 26.2 Sodium 141 Potassium 4.1 Chloride 109 H Carbon Dioxide 24.2 Anion Gap 8 BUN 26 H Creatinine 1.0 Estim Creat Clear Calc 63.0 eGFR > 60 BUN/Creatinine Ratio 26 H Glucose [address] Glu mg/dL 111 Hemoglobin A1c 5.5 Calculated Osmolality 287 Calcium 8.1 L Corrected Calcium 9.2 Phosphorus 3.2 Magnesium 1.8 Iron 24 L TIBC 265 Iron Saturation 9 L Unsat Iron Binding 241 Total Bilirubin 1.1 AST 69 H ALT 51 H Alkaline Phosphatase 56 Total Protein 4.9 L Albumin 2.6 L Globulin 2.3 Albumin/Globulin Ratio 1.1 L Triglycerides 95 Cholesterol 84 L LDL Cholesterol, Calc 45 HDL Cholesterol 20 L Cholesterol/HDL Ratio 4.2 Tumor Marker AFP 69.10 H TSH 0.37 L Free T4 0.86 L Hepatitis A IgM Ab Non Reactive Hep Bs Antigen Non Reactive Hep B Core IgM Ab Non Reactive Hepatitis C Antibody Reactive A HIV 1&2 Antibody Rapid Non-Reactive Blood Type A Positive Antibody Screen NEGATIVE Crossmatch See Detail Blood Bank Wristband ID Yes Quality Measures Quality Measures none Advance care planning discussed with:: patient Assessment & Plan Assessment Current Active Medications: Generic Name Dose Route Start Last Admin Trade Name Freq PRN Reason Stop Dose Admin Acetaminophen 650 mg 08/15/24 20:07 Acetaminophen 325 Mg Tablet PO 09/14/24 20:06 Q6H PRN Fever >100 or pain 1-3 Folic Acid 1 mg 08/16/24 09:00 08/16/24 08:19 Folic Acid 1 Mg Tablet PO 08/21/24 08:59 Not Given BID PAULA Pantoprazole Sodium 80 mg in 100 mls @ 10 mls/hr 08/15/24 20:10 08/16/24 05:00 Protonix/Ns 80mg Iv Premix IV 08/18/24 18:09 10 mls/hr Q10H PAULA Administration Ceftriaxone Sodium/Dextrose 1 gm in 50 mls @ 100 mls/hr 08/16/24 09:00 08/16/24 08:24 Rocephin/D5w 1gm Iv Premix IV 08/23/24 08:59 100 mls/hr QDAY PAULA Administration Octreotide Acetate 1,000 mcg/ 102 mls @ 5.1 mls/hr 08/16/24 09:30 Sodium Chloride IV 08/20/24 09:29 .Q20H PAULA Protocol 50 MCG/HR Lorazepam 0.5 mg 08/16/24 08:09 Lorazepam 0.5 Mg Tablet PO 08/21/24 08:08 Q4HR PRN CIWA Score 2-6 Lorazepam 1 mg 08/16/24 08:09 Lorazepam 0.5 Mg Tablet PO 08/21/24 08:08 Q4HR PRN CIWA SCORE 7-11 Lorazepam 2 mg 08/16/24 08:09 Lorazepam 0.5 Mg Tablet PO 08/21/24 08:08 Q4HR PRN CIWA SCORE 12-15 Lorazepam 1 mg 08/16/24 08:09 Lorazepam 2 Mg/Ml Vial IV X1 PRN Breakthrough Agitation Ondansetron HCl 4 mg 08/15/24 20:07 Ondansetron Inj 2 Mg/Ml Inj 2 Ml IV 09/14/24 20:06 Q6H PRN NAUSEA OR VOMITING Protocol Thiamine HCl 100 mg 08/16/24 09:00 08/16/24 08:19 Thiamine 100 Mg Tablet PO 08/21/24 08:59 Not Given BID PAULA Plan 63-year-old male with past medical history of polysubstance use disorder, alcohol use disorder, hepatitis C, cirrhosis who presented to the hospital with melena and hematemesis; moreover, admitted for upper GI bleed likely secondary to alcohol induced cirrhosis #Upper GI Bleed #Esophageal varices secondary to cirrhosis, alcohol induced #Acute blood loss anemia #Symptomatic anemia Hematemesis, melena, hypotension with tachycardia (HR 101, BP 106/70) Anemia (Hb 8.1), elevated BUN (28), normal Cr (0.9) ? BUN/Cr ratio >20 suggestive of UGIB History of alcohol use disorder, cirrhosis on imaging, and low albumin (3.0) Elevated AST > ALT; possible alcoholic liver disease Hepatic lesion (30 mm low-density), trace ascites ? possible HCC or regenerative nodule NSAID use: Uses NSAIDS, last time was yesterday Iron panel shows: Iron of 24, TIBC 265, iron saturation 9% and reticulocyte count is elevated as expected EGD completed with Dr. Mckeon on 03/18 showed grade 2 esophageal varices which were banded, gastritis with hemorrhage Plan: Liquid diet, advance as tolerated Transfuse PRBCs for Hb <7or hemodynamic instability IV octreotide day 1 of 5 Continue protonix IV Rocephin 1g IV daily x5 days (SBP prophylaxis in suspected variceal bleed) GI consulted, appreciate recs Pending peripheral blood smear Avoid any NSAIDs #Cirrhosis #Hepatitis C positive #Liver lesion Hepatic lesion (30 mm low-density), trace ascites ? possible HCC or regenerative nodule Hepatitis C was positive on blood draw today HCC could be possible due to drug hx and hepatitis C CT also shows cirrhosis of liver AFP elevated 69.10; normal is less than 8.10 HIV nonreactive Plan: Infectious disease consulted for Hepatitis C MRI with and without contrast of the abdomen ordered Trend PT/INR, PTT #Alcohol use disorder Was in remission from 1023-1309 Patient apparently drinks around 6 beers 4-5 times a week Last drink was 08/11 per patient Plan: CIWA protocol Folic and Thiamine supplementation #Hypothyroidism Likely secondary to pituitary adenoma versus tertiary hypothyroidism Patient's TSH 0.37 and free T4 0.86 Patient is not on any medications at this time Plan: Will consider ordering thyroid antibodies Prolactin level for pituitary adenoma Follow-up outpatient with PCP and possible endocrinology referral Hospital Management: Lines: PIV Diet: Clear liquid, advancing to low-sodium on 08/17 Bowel: Not needed at this time GI prophylaxis: On Protonix and octreotide DVT prophylaxis: SCD Dispo: Needs to complete 5 days of octreotide drip for esophageal varices, and workup for possible HCC Code: Full Patient seen and examined with attending Dr. Howell and senior resident Dr. Anthony Renner, PGY-1 Attending Provider Attestation/Addendum I attest that I was physically present for the evaluation, physical examination, lab and imaging review of the patient with the residents. I discussed the case with the residents and agree with the findings and plans of care as documented above. Patient is a 63 years old male with past medical history of polysubstance use disorder, alcohol use disorder, hepatitis C, liver cirrhosis who was admitted overnight for management of upper GI bleeding and blood loss anemia. Patient was started on octreotide, Protonix, Rocephin overnight. He underwent upper GI endoscopy, was found to have esophageal varices which were banded, also had gastritis with hemorrhage. Patient has been started on clear liquid diet, tolerating well. States that he has been feeling well and denies any new complaints except for mild lightheadedness from anesthesia. Hemoglobin noted to be 6.9 this morning, patient is receiving 1 unit of PRBC transfusion. We will follow-up with posttransfusion H&H. Vital signs are stable. chemistry panel is also stable except for mild elevation in liver enzymes. Patient has a right lower lobe liver lesion on CT abdomen/pelvis also has elevated AFP 69.1, we will obtain liver MRI. Patient also tested positive for hepatitis C antibody, we will obtain ID consult. Patient also drinks regularly, currently does not have any withdrawal symptoms, we will start him on CIWA protocol. Deborah Howell MD
--- NOTE | 2024-08-16 13:56 | PC.SS ---
Yvette Markham is a 63-year-old male admitted to [facility] for GI Bleed. SS conducted bedside contact with the patient to complete initial assessment and to discuss discharge planning.? Patient confirmed demographic information. Patient identifies his sister Freda Lord [phone] as his surrogate decision maker. Patient resides at home with alone. Pt states he is able to complete all ADL?s independently, no need for any source of DME. Pts PCP is Dr. Vazquez [facility] (last visit about 3 years ago) and pharmacy of choice is [facility]. DC option discussed and pt wishes to return home. Pts fam will provide transportation upon DC. No further intervention required at this time, social media marketing manager would be available to address any further concerns. DC Plan: Home Contact: Sister Freda PCP: George
[2024-08-16] MEDS: OCTREOTIDE ACET INJ 1,000 MCG in SODIUM CHLORIDE 0.9% 100 ML 5.1 MCG IV (15:14)
--- NOTE | 2024-08-16 15:21 | PC.SS ---
Rounding: Pt needs 5 days of Octreotide
[2024-08-16 16:34] LABS: Hemoglobin 8.2 g/dL (13.5-16.0)
[2024-08-16] MEDS: THIAMINE 100 MG TABLET PO (20:16)
[2024-08-16] MEDS: FOLIC ACID 1 MG TABLET PO (20:16)
[2024-08-17] VITALS: BP 121/69; PULSE 66; PULSE 80; RESP 18; TEMP 36.4; O2SAT 99
[2024-08-17] MEDS: PANTOPRAZOLE/NS 80MG IV PREMIX 80 MG/100 ML BAG 10 MG IV ×3 (03:53→23:50)
[2024-08-17 04:00] VITALS: BP 123/75; PULSE 67; PULSE 75; RESP 18; TEMP 36.4; O2SAT 99
[2024-08-17 06:34] LABS: Basophils % (Auto) 1 % (0-2.5); Eosinophils # (Auto) 0.2 Thou/mm3 (0.0-0.5); Eosinophils % (Auto) 5 % (0-10); Immature Granulocytes % (Auto) 0 % (0-0); Immature Granulocytes Auto 0.01 Thou/mm3 (0.00-0.00); Lymphocytes # (Auto) 1.6 Thou/mm3 (1.0-4.8); Lymphocytes % (Auto) 44 % (10-50); Mean Corpuscular HGB Conc 35.2 g/dl (31.0-37.0); Mean Corpuscular Hemoglobin 31.5 pg (25.0-35.0); Mean Corpuscular Volume 90 fL (80-100); Monocytes # (Auto) 0.3 Thou/mm3 (0.0-0.8); Monocytes % (Auto) 8 % (0-12); Neutrophils # (Auto) 1.5 Thou/mm3 (1.8-7.7); Neutrophils % (Auto) 42 % (37-80); Nucleated Red Blood Cell % 0 /100 WBC (0); Platelet Count 88 Thou/mm3 (140-440); RDW Standard Deviation 45.2 fL (35.1-43.9); Red Blood Count 2.79 Miln/mm3 (4.50-5.90); White Blood Count 3.7 Thou/mm3 (3.8-10.6)
[2024-08-17 07:05] LABS: Alanine Aminotransferase 56 U/L (10-49); Albumin, Serum 2.5 gm/dL (3.4-4.8); Alkaline Phosphatase 57 U/L (46-116); Anion Gap 9 (7-16); Aspartate Amino Transferase 75 U/L (0-34); BUN/Creatinine Ratio 15 Ratio (12-20); Bilirubin,Total 1.4 mg/dL (0.3-1.2); Blood Urea Nitrogen 17 mg/dL (9-23); Calcium 7.9 mg/dL (8.3-10.6); Calcium (Corrected) 9.1 mg/dL (8.5-10.1); Carbon Dioxide 22.6 mMol/L (20.0-31.0); Chloride 109 mMol/L (98-107); Creatinine (Component) 1.1 mg/dL (0.6-1.3); Estimated Creatinine Clearance 57.3 mL/min (>60); Globulin 2.5 gm/dL (2.3-3.5); Glucose 103 mg/dL (74-106); Magnesium 1.8 mg/dL (1.6-2.6); Osmolality,Calculated 282 (275-295); Phosphorous 3.4 mg/dL (2.4-5.1); Sodium 141 mMol/L (136-145); eGFR > 60 See Note
[2024-08-17 07:45] LABS: Hemoglobin 8.8 g/dL (13.5-16.0)
[2024-08-17 08:00] VITALS: BP 118/67; PULSE 72; PULSE 79; RESP 17; TEMP 36.2; O2SAT 96
[2024-08-17] MEDS: THIAMINE 100 MG TABLET PO ×2 (08:18→20:35)
[2024-08-17] MEDS: FOLIC ACID 1 MG TABLET PO ×2 (08:19→20:35)
[2024-08-17] MEDS: cefTRIAXone/D5w 1gm IV premix 1 GM/50 ML BAG IV (08:19)
[2024-08-17] MEDS: Magnesium Sulfate 4 GM Ivpb 4 GM/50 ML BAG IV (09:13)
--- NOTE | 2024-08-17 09:40 | PD.IDPROG ---
Subjective Subjective Interval history: asked to see for hep c rx. sadly, drugs cose 60-90k for 12 weeks rx and although very effective are very expensive so rx is an outpt thing. he already has cirrhosis so may not qualify for hep c rx. has a liver mass as well Exam Vital Signs Temp Pulse Resp BP Pulse Ox O2 Del Method O2 Flow Rate 97.1 F 79 17 118/67 96 Room Air 3 08/17/24 08:00 08/17/24 08:00 08/17/24 08:00 08/17/24 08:00 08/17/24 08:00 08/16/24 16:00 08/16/24 16:00 Narrative Exam no annie ascites. no edema. no bc done. and no fever, so value of abx seems low Objective - Internal Medicine Labs 08/17/24 05:48 08/17/24 05:48 Labs: Laboratory Results - last 24 hr 08/15/24 08/16/24 08/16/24 11:11 04:35 15:47 WBC RBC Hgb 8.2 L Hct 24.0 L MCV MCH MCHC RDW Std Deviation Plt Count Neut % (Auto) Lymph % (Auto) [place] % (Auto) Eos % (Auto) Baso % (Auto) Neut # (Auto) Lymph # (Auto) [place] # (Auto) Eos # (Auto) Baso # (Auto) Immature Gran # (Auto) Absolute Nucleated RBC Immature Gran % Nucleated RBC % Sodium Potassium Chloride Carbon Dioxide Anion Gap BUN Creatinine Estim Creat Clear Calc eGFR BUN/Creatinine Ratio Glucose Calculated Osmolality Calcium Corrected Calcium Phosphorus Magnesium Total Bilirubin AST ALT Alkaline Phosphatase Total Protein Albumin Globulin Albumin/Globulin Ratio Free T4 0.86 L Blood Type A Positive Antibody Screen NEGATIVE Crossmatch See Detail Blood Bank Wristband ID Yes 08/17/24 05:48 WBC 3.7 L RBC 2.79 L Hgb 8.8 L Hct 25.0 L MCV 90 MCH 31.5 MCHC 35.2 RDW Std Deviation 45.2 H Plt Count 88 L Neut % (Auto) 42 Lymph % (Auto) 44 [place] % (Auto) 8 Eos % (Auto) 5 Baso % (Auto) 1 Neut # (Auto) 1.5 L Lymph # (Auto) 1.6 [place] # (Auto) 0.3 Eos # (Auto) 0.2 Baso # (Auto) 0.0 Immature Gran # (Auto) 0.01 H Absolute Nucleated RBC 0.00 Immature Gran % 0 Nucleated RBC % 0 Sodium 141 Potassium 4.0 Chloride 109 H Carbon Dioxide 22.6 Anion Gap 9 BUN 17 Creatinine 1.1 Estim Creat Clear Calc 57.3 L eGFR > 60 BUN/Creatinine Ratio 15 Glucose 103 Calculated Osmolality 282 Calcium 7.9 L Corrected Calcium 9.1 Phosphorus 3.4 Magnesium 1.8 Total Bilirubin 1.4 H AST 75 H ALT 56 H Alkaline Phosphatase 57 Total Protein 5.0 L Albumin 2.5 L Globulin 2.5 Albumin/Globulin Ratio 1.0 L Free T4 Blood Type Antibody Screen Crossmatch Blood Bank Wristband ID Assessment & Plan A&P Narrative hep c. liver mass, not seen on subsequent mri though. u/s may be a better imaging modality for that process gi bleeding cirrhosis with varices hep c rx is never started in hospital due to cost. no hospital worldwide carries the meds as far as I know. cost if 60-90k for 12 weeks and it does not reverse cirrhosis. stopped the rocephin as no eval for bacteremia done and no fever. home at your discretion avoid etoh completely in the future. it takes 5-7d for the labs to return and they will not be sent out till tuesday, so there is no point in him waiting here. note that hiv neg and never incarcerated or used iv drugs. 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 Time Spent With Patient Time: Total time spent is greater than 50% in coordination of care (as documented) at patient's floor/unit and/or counseling patient:
[2024-08-17 11:34] VITALS: BMI 19.1
[2024-08-17 12:00] VITALS: BP 104/61; PULSE 65; PULSE 78; RESP 16; TEMP 36.9; O2SAT 95
--- NOTE | 2024-08-17 12:21 | ESCONSULT_ITS ---
RE: JAY SANON : 1960 DATE OF CONSULTATION: 08/17/2024 REFERRING PHYSICIAN: Dr. Moy. REASON FOR CONSULTATION: Hepatitis C positive in a patient with cirrhosis. HISTORY OF PRESENT ILLNESS: The patient is a 63-year-old with no known risk factors for hepatitis C. He has not been incarcerated, has not used injection drugs and has not had any sex with men. His last sexual encounter was some time ago. He has been for about 15- 20 years. He is anemic. He drinks a couple of beers a day at least and is hep C positive, but it is unclear if he has had any treatment before. He seemed unaware of the hepatitis C diagnosis. SURGICAL HISTORY: Included distant bilateral hernia repair as a child and subsequent closed head injury with internal bleeding in 1993, requiring brain surgery at [facility] and EGD this admission. ALLERGIES: NONE NOTED. IMMUNIZATIONS: Last tetanus is not known. He had one COVID vaccine. He does not take a flu shot every year. He did not have a pneumococcal vaccination. FAMILY HISTORY: Unremarkable. SOCIAL HISTORY: He lives by himself. He has been for 15-20 years. He is a nonsmoker. He does consume some alcohol. PHYSICAL EXAMINATION: GENERAL: The patient is well appearing. HEENT: Benign. HEART: Benign. LUNGS: Benign. ABDOMEN: Benign. ASSESSMENT AND PLAN: He is on meds per others. I am going to stop his antibiotics as there are no cultures were done. Our resident verified that apparently the guidelines favor use of antibiotics empirically, so he is on Rocephin for a couple of days, but no cultures were done, so we will just go ahead and stop the antibiotics and he did get a dose today, so he has had dose from 27th and 28th and may be 26th as well. He has not had any fevers so chance of problems seems low. From a hepatitis C prospective, I will get some labs tomorrow morning. Generally, we do not start treatment in the hospital because it is too expensive, it costs $60,000 to $90,000 for course of treatment of 12 weeks and some insurances does not allow it if it is started in the hospital, so starting in the hospital does not make sense. meds are not formulary anywhere in the world. So, please do not attempt to start the treatment for hepatitis C. Make sure there is positive viral load with genotype and other studies before starting as the test maybe falsely positive. DT: 10:11:19 TT: 11:12:00 Ref: [id number] - TID: [id number] MTDD
[2024-08-17] MEDS: OCTREOTIDE ACET INJ 1,000 MCG in SODIUM CHLORIDE 0.9% 100 ML 5.1 MCG IV (14:17)
--- NOTE | 2024-08-17 14:22 | PD.RESDS ---
Planned Discharge Date 08/17/24 DS: Providers Provider Date of admission: 08/15/24 19:20 Primary care physician: Vladislav Vazquez MD Admitting Provider: Marcus Moy MD Attending Provider on Admission: Deborah Howell MD Consults: 08/15/24 17:38 Consult to Gastroenterology Stat Comment: GIB Consulting Provider: Mayur Mckeon 08/16/24 14:03 Consult to Infectious Diseases Routine Comment: Hepatitis C, Liver lesion Consulting Provider: Toribio Mims Attending Provider on DC: Ziggy Renner MD Discharging Provider: Ziggy Renner MD Hospital Course Hospital Course Hospital course: 08/16/2024: Overnight admission for 63-year-old male with past medical history of polysubstance use disorder, alcohol use disorder, hepatitis C, cirrhosis who presented to the hospital with melena and hematemesis; moreover, admitted for upper GI bleed likely secondary to alcohol induced cirrhosis. Patient completed EGD with Dr. Mckeon which showed grade 2 esophageal varices which were banded, gastritis with hemorrhage. Patient will require IV octreotide drip for 5 days and diet will be slowly advanced as tolerated. Patient will obtain an MRI abdomen with and without contrast for high suspicion of liver neoplasm as noted by increased AFP, high risk factor with cirrhosis and hepatitis C. Patient could benefit from infectious disease workup and treatment for hepatitis C. Will continue to monitor the patient for any acute changes. Time Spent with Patient Time attestation: Total time spent providing and/or coordinating discharge services: Exam Vital Signs Temp Pulse Resp BP Pulse Ox O2 Del Method O2 Flow Rate 98.5 F 78 16 104/61 95 Room Air 3 08/17/24 12:00 08/17/24 12:00 08/17/24 12:00 08/17/24 12:00 08/17/24 12:00 08/17/24 12:00 08/16/24 16:00 Discharge Plan Prescriptions/Referrals Referrals: Vladislav Vazquez MD [Primary Care Provider] - Patient/Caregiver Discharge Instructions Print Language: Omani
--- NOTE | 2024-08-17 14:24 | ESPR_ITS ---
<Statement entered by Judy Cruz MD - 08/18/24 12:36> Patient was seen and examined by me personally. I have directly supervised and reviewed documentation by the team resident and agree with its findings with any exceptions or additional findings as below. Plan of care was discussed with the attending, Dr. Howell. Patient is on day 3/5 of octreotide infusion. Abdomen MRI showed cirrhosis but no liver lesions confirmed, prominent splenomegaly, cholelithiasis, marked wall thickening and edema involving the gallbladder but assessment of the gallbladder wall limited secondary to the patient's ascites. There is low suspicion of cystic duct obstruction at this time, patient does not report any concerning symptoms. For hepatitis C ID recommended outpatient follow up for initiation of treatment. Hepatitis C genotype and viral load were ordered. Judy Cruz, PGY-2 Documentation for date of: 08/17/24 Subjective Subjective Interval history: 08/17/2024: No acute overnight events to report; moreover, patient did not require any Ativan and CIWA assessments were 0. Patient also had 1 unit of PRBC transfused with adequate increase in hemoglobin. Patient seen and examined in hospital bed denies having any concerning symptoms such as chest pain, shortness of breath, abdominal pain, persistent melena/hematochezia or emesis. Patient's MRI abdomen does not show any liver mass but there is some findings of possible cholelithiasis with cystic duct obstruction. Will continue to monitor the patient's liver enzymes and consider getting a HIDA scan as the patient is asymptomatic at this point. Patient will also need to follow-up outpatient for thyroid studies. Will continue IV octreotide drip for 2 additional days and monitor for any acute changes. Patient was counseled extensively regarding alcohol cessation; moreover, social work case manager has been consulted for support. Exam Vital Signs Temp Pulse Resp BP Pulse Ox O2 Del Method O2 Flow Rate 98.5 F 78 16 104/61 95 Room Air 3 08/17/24 12:00 08/17/24 12:08/17/24 12:08/17/24 12:08/17/24 12:08/17/24 12:08/16/24 16:00 Narrative Exam Physical Exam: General: Awake, pleasant elderly male, appears in stated age HEENT: Dry mucous membranes, conjunctiva clear, EOMI, PERRLA, poor dentition Cardiovascular: Ejection systolic murmur heard best over left upper sternal border, radiates to the carotids, radial pulses +2 bilat, RRR Pulmonary: CTAB bilat no cough, no wheezing GI: No tenderness to light or deep palpitation, no guarding, rigidity, rebound tenderness or distension Extremities: No presence of trace or pitting edema in lower extremities bilaterally, dorsalis pedis pulses +2 bilaterally, no track conte visualized Neuro: AAOx3, no focal motor or sensory deficits in the UE or LE bilat Objective Labs 08/17/24 05:48 08/17/24 05:48 Labs: Laboratory Results - last 24 hr 08/15/24 08/16/24 08/17/24 11:11 15:47 05:48 WBC 3.7 L RBC 2.79 L Hgb 8.2 L 8.8 L Hct 24.0 L 25.0 L MCV 90 MCH 31.5 MCHC 35.2 RDW Std Deviation 45.2 H Plt Count 88 L Neut % (Auto) 42 Lymph % (Auto) 44 [place] % (Auto) 8 Eos % (Auto) 5 Baso % (Auto) 1 Neut # (Auto) 1.5 L Lymph # (Auto) 1.6 [place] # (Auto) 0.3 Eos # (Auto) 0.2 Baso # (Auto) 0.0 Immature Gran # (Auto) 0.01 H Absolute Nucleated RBC 0.00 Immature Gran % 0 Nucleated RBC % 0 Sodium 141 Potassium 4.0 Chloride 109 H Carbon Dioxide 22.6 Anion Gap 9 BUN 17 Creatinine 1.1 Estim Creat Clear Calc 57.3 L eGFR > 60 BUN/Creatinine Ratio 15 Glucose 103 Calculated Osmolality 282 Calcium 7.9 L Corrected Calcium 9.1 Phosphorus 3.4 Magnesium 1.8 Total Bilirubin 1.4 H AST 75 H ALT 56 H Alkaline Phosphatase 57 Total Protein 5.0 L Albumin 2.5 L Globulin 2.5 Albumin/Globulin Ratio 1.0 L Crossmatch See Detail Quality Measures Quality Measures none Advance care planning discussed with:: patient Assessment & Plan Assessment Current Active Medications: Generic Name Dose Route Start Last Admin Trade Name Freq PRN Reason Stop Dose Admin Acetaminophen 650 mg 08/15/24 20:07 Acetaminophen 325 Mg Tablet PO 09/14/24 20:06 Q6H PRN Fever >100 or pain 1-3 Folic Acid 1 mg 08/16/24 09:00 08/17/24 08:19 Folic Acid 1 Mg Tablet PO 08/21/24 08:59 1 mg BID PAULA Administration Pantoprazole Sodium 80 mg in 100 mls @ 10 mls/hr 08/15/24 20:10 08/17/24 14:17 Protonix/Ns 80mg Iv Premix IV 08/18/24 18:09 10 mls/hr Q10H PAULA Administration Octreotide Acetate 1,000 mcg/ 102 mls @ 5.1 mls/hr 08/16/24 09:30 08/17/24 14:17 Sodium Chloride IV 08/20/24 09:29 50 mcg/hr .Q20H PAULA 5.1 mls/hr Administration Protocol 50 MCG/HR Lorazepam 0.5 mg 08/16/24 08:09 Lorazepam 0.5 Mg Tablet PO 08/21/24 08:08 Q4HR PRN CIWA Score 2-6 Lorazepam 1 mg 08/16/24 08:09 Lorazepam 0.5 Mg Tablet PO 08/21/24 08:08 Q4HR PRN CIWA SCORE 7-11 Lorazepam 2 mg 08/16/24 08:09 Lorazepam 0.5 Mg Tablet PO 08/21/24 08:08 Q4HR PRN CIWA SCORE 12-15 Lorazepam 1 mg 08/16/24 08:09 Lorazepam 2 Mg/Ml Vial IV X1 PRN Breakthrough Agitation Ondansetron HCl 4 mg 08/15/24 20:07 Ondansetron Inj 2 Mg/Ml Inj 2 Ml IV 09/14/24 20:06 Q6H PRN NAUSEA OR VOMITING Protocol Thiamine HCl 100 mg 08/16/24 09:00 08/17/24 08:18 Thiamine 100 Mg Tablet PO 08/21/24 08:59 100 mg BID PAULA Administration Plan 63-year-old male with past medical history of polysubstance use disorder, alcohol use disorder, hepatitis C, cirrhosis who presented to the hospital with melena and hematemesis; moreover, admitted for upper GI bleed likely secondary to alcohol induced cirrhosis #Upper GI Bleed #Esophageal varices secondary to cirrhosis, alcohol induced #Acute blood loss anemia #Symptomatic anemia Hematemesis, melena, hypotension with tachycardia (HR 101, BP 106/70) Anemia (Hb 8.1), elevated BUN (28), normal Cr (0.9) ? BUN/Cr ratio >20 suggestive of UGIB History of alcohol use disorder, cirrhosis on imaging, and low albumin (3.0) Elevated AST > ALT; possible alcoholic liver disease Hepatic lesion (30 mm low-density), trace ascites ? possible HCC or regenerative nodule NSAID use: Uses NSAIDS, last time was yesterday Iron panel shows: Iron of 24, TIBC 265, iron saturation 9% and reticulocyte count is elevated as expected EGD completed with Dr. Mckeon on 03/18 showed grade 2 esophageal varices which were banded, gastritis with hemorrhage Plan: 2 g sodium diet tolerating Transfuse PRBCs for Hb <7 or hemodynamic instability IV octreotide day 3 of 5 Continue protonix IV Rocephin discontinued by ID as there is low suspicion for SBP (minimal to no ascites, no fever) GI consulted, appreciate recs Pending peripheral blood smear Avoid any NSAIDs Outpatient colonoscopy #Cirrhosis secondary to alcohol use disorder #Hepatitis C positive #Possible cholelithiasis? Hepatic lesion (30 mm low-density), trace ascites ? possible HCC or regenerative nodule Hepatitis C was positive on blood draw today HCC could be possible due to drug hx and hepatitis C CT also shows cirrhosis of liver AFP elevated 69.10; normal is less than 8.10 HIV nonreactive MRI with and without contrast of the abdomen ordered shows: Cirrhosis, no liver lesions confirmed. Prominent splenomegaly. Cholelithiasis, marked wall thickening and edema involving the gallbladder Plan: Will trend LFTs, will not obtain HIDA as the patient is asymptomatic currently Infectious disease consulted for Hepatitis C, no treatment per ID note Hepatitis C viral load ordered Trend PT/INR, PTT #Alcohol use disorder Was in remission from [id number] Patient apparently drinks around 6 beers 4-5 times a week Last drink was 08/11 per patient [facility] assessments have been 0 so far Plan: Counseled on complete alcohol cessation and the patient is agreeable [facility] protocol Folic and Thiamine supplementation director of physiotherapy services consulted for support as the patient currently lives alone #Hypothyroidism Likely secondary to pituitary adenoma versus tertiary hypothyroidism Patient's TSH 0.37 and free T4 0.86 Patient is not on any medications at this time Hypothyroidism possibly secondary to acute hospitalization/acutely ill status Plan: Follow-up outpatient with PCP and possible endocrinology referral Outpatient prolactin level for pituitary adenoma Hospital Management: Lines: PIV Diet: Clear liquid, advancing to low-sodium on 08/17 Bowel: Not needed at this time GI prophylaxis: On Protonix and octreotide DVT prophylaxis: SCD Dispo: Needs to complete 5 days of octreotide drip for esophageal varices, and workup for possible HCC Code: Full Patient seen and examined with attending Dr. Howell and senior resident Dr. Anthony Renner, PGY-1 Attending Provider Attestation/Addendum I attest that I was physically present for the evaluation, physical examination, lab and imaging review of the patient with the residents. I discussed the case with the residents and agree with the findings and plans of care as documented above. At bedside today, patient states that he is feeling well and does not have any new complaints. Denies any nausea, vomiting, abdominal pain, bleeding episodes or withdrawal symptoms. Has been started on low-sodium diet, tolerating well. IV Rocephin discontinued as recommended by ID, appreciate recommendations. Continues to be on octreotide to be discontinued for 5 days total. GI following, appreciate recommendations. Deborah Howell MD
[2024-08-17 16:00] VITALS: BP 122/60; PULSE 78; PULSE 79; RESP 16; TEMP 36.7; O2SAT 99
--- NOTE | 2024-08-17 16:12 | PC.SS ---
Follow up note: Pt is still on IV octreotide drip for 2 more days. Pt will return home upon dc.
--- NOTE | 2024-08-17 19:27 | PD.IMPROG ---
Documentation for date of: 08/17/24 Subjective Subjective Interval history: Patient evaluated Hemoglobin hematocrit 8.8 and 25.0 Endoscopic findings discussed with the patient Exam Vital Signs Temp Pulse Resp BP Pulse Ox O2 Del Method O2 Flow Rate 98.1 F 78 16 122/60 99 Room Air 3 08/17/24 16:00 08/17/24 16:00 08/17/24 16:00 08/17/24 16:00 08/17/24 16:00 08/17/24 16:00 08/17/24 16:00 Objective Labs 08/17/24 05:48 08/17/24 05:48 Labs: Laboratory Results - last 24 hr 08/17/24 05:48 WBC 3.7 L RBC 2.79 L Hgb 8.8 L Hct 25.0 L MCV 90 MCH 31.5 MCHC 35.2 RDW Std Deviation 45.2 H Plt Count 88 L Neut % (Auto) 42 Lymph % (Auto) 44 [place] % (Auto) 8 Eos % (Auto) 5 Baso % (Auto) 1 Neut # (Auto) 1.5 L Lymph # (Auto) 1.6 [place] # (Auto) 0.3 Eos # (Auto) 0.2 Baso # (Auto) 0.0 Immature Gran # (Auto) 0.01 H Absolute Nucleated RBC 0.00 Immature Gran % 0 Nucleated RBC % 0 Sodium 141 Potassium 4.0 Chloride 109 H Carbon Dioxide 22.6 Anion Gap 9 BUN 17 Creatinine 1.1 Estim Creat Clear Calc 57.3 L eGFR > 60 BUN/Creatinine Ratio 15 Glucose 103 Calculated Osmolality 282 Calcium 7.9 L Corrected Calcium 9.1 Phosphorus 3.4 Magnesium 1.8 Total Bilirubin 1.4 H AST 75 H ALT 56 H Alkaline Phosphatase 57 Total Protein 5.0 L Albumin 2.5 L Globulin 2.5 Albumin/Globulin Ratio 1.0 L Impressions Impression: Esophageal variceal bleeding requiring band ligation of the esophageal varices Hemorrhagic gastritis in the setting of hypertensive portal gastropathy Advance diet Continue octreotide Assessment & Plan A&P Narrative hep c. liver mass, not seen on subsequent mri though. u/s may be a better imaging modality for that process gi bleeding cirrhosis with varices hep c rx is never started in hospital due to cost. no hospital worldwide carries the meds as far as I know. cost if 60-90k for 12 weeks and it does not reverse cirrhosis. stopped the rocephin as no eval for bacteremia done and no fever. home at your discretion avoid etoh completely in the future. it takes 5-7d for the labs to return and they will not be sent out till tuesday, so there is no point in him waiting here. note that hiv neg and never incarcerated or used iv drugs. 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 Time Spent With Patient Time: Total time spent is greater than 50% in coordination of care (as documented) at patient's floor/unit and/or counseling patient:
--- NOTE | 2024-08-17 19:47 | ESCONSULT_ITS ---
<Statement entered by Toribio Mims MD - 08/20/24 09:19> pt seen with resident. all findings confirmed HPI Data of Consult Requesting Physician: Deborah Howell MD Admitting Provider: Marcus Moy MD Attending Provider: Deborah Howell MD Primary Care Provider: Vladislav Vazquez MD Consult Narrative History of present illness: 63 yo with PMH of alcohol use who presented do the ED due to hematemesis. Patient was admitted and found to have cirrhosis, upper EGD showed esophageal varices. Hepatitis panel was done which was positive for Hepatitis C, so ID was consulted. Patient was started on rocephin due to GI bleed. PMH as above Social: Patient admits to drinking several beers every day, denies IV drug use, denies msm activity. cc:: cc: Deborah Howell MD Exam Vital Signs Temp Pulse Resp BP Pulse Ox O2 Del Method O2 Flow Rate 97.9 F 68 16 109/58 L 98 Room Air 3 08/19/24 16:00 08/19/24 16:00 08/19/24 16:00 08/19/24 16:00 08/19/24 16:00 08/19/24 16:00 08/17/24 16:00 Results Labs 08/19/24 08:16 08/19/24 08:16 Labs: Short CBC 08/18/24 08/19/24 Range/Units 19:40 08:16 WBC 5.6 D (3.8-10.6) Thou/mm3 Hgb 8.6 L 8.7 L (13.5-16.0) g/dL Hct 24.2 L 24.9 L (41.0-53.0) % Plt Count 105 L D (140-440) Thou/mm3 BMP 08/19/24 08:16 Sodium 137 Potassium 4.1 Chloride 107 Carbon Dioxide 24.3 BUN 15 Creatinine 1.1 Glucose 181 H D Calcium 7.5 L Liver Function 08/19/24 Range/Units 08:16 Total Bilirubin 1.6 H D (0.3-1.2) mg/dL AST 48 H (0-34) U/L ALT 44 (10-49) U/L Alkaline Phosphatase 65 (46-116) U/L Albumin 2.8 L (3.4-4.8) gm/dL Quality Measures Quality Measures none Advance care planning discussed with:: patient Medications Home Medications and Allergies Allergies Allergy/AdvReac Type Severity Reaction Status Date / Time No Known Allergies Allergy Verified 08/15/24 10:45 Visit Medications Acetaminophen (Acetaminophen 325 Mg Tablet) 650 mg PO Q6H PRN PRN Reason: Fever >100 or pain 1-3 Stop: 09/14/24 20:06 Octreotide Acetate 1,000 mcg/ (Sodium Chloride) 102 mls @ 5.1 mls/hr IV .Q20H PAULA; Protocol Stop: 08/20/24 09:29 Last Admin: 08/19/24 10:28 Dose: 50 mcg/hr, 5.1 mls/hr Ondansetron HCl (Ondansetron Inj 2 Mg/Ml Inj 2 Ml) 4 mg IV Q6H PRN; Protocol PRN Reason: NAUSEA OR VOMITING Stop: 09/14/24 20:06 Discontinued Medications Diphenhydramine HCl (Diphenhydramine Inj 50 Mg/Ml Vial) 25 mg IV [id number] PRN PRN Reason: MODERATE SEDATION Stop: 08/16/24 10:49 Fentanyl Citrate (Fentanyl Cit Inj 50 Mcg/Ml Amp 2ml) 50 mcg IV Q2M PRN PRN Reason: MODERATE SEDATION Stop: 08/16/24 10:49 Folic Acid (Folic Acid 1 Mg Tablet) 1 mg PO BID [facility] Stop: 08/21/24 08:59 Last Admin: 08/19/24 08:07 Dose: 1 mg Octreotide Acetate 1,000 mcg/ (Sodium Chloride) 102 mls @ 5.1 mls/hr IV .Q20H [facility]; Protocol Stop: 08/16/24 14:14 Last Admin: 08/15/24 18:56 Dose: 50 mcg/hr, 5.1 mls/hr Pantoprazole Sodium (Protonix/Ns 80mg Iv Premix) 80 mg in 100 mls @ 10 mls/hr IV Q10H [facility] Stop: 08/18/24 18:09 Last Admin: 08/18/24 07:16 Dose: 10 mls/hr Ceftriaxone Sodium/Dextrose (Rocephin/D5w 1gm Iv Premix) 1 gm in 50 mls @ 100 mls/hr IV QDAY [facility] Stop: 08/23/24 08:59 Last Admin: 08/17/24 08:19 Dose: 100 mls/hr Magnesium Sulfate (Magnesium Sulfate Ivpb) 4 gm in 50 mls @ 12.5 mls/hr IV X1 ONE Stop: 08/17/24 12:00 Last Admin: 08/17/24 09:13 Dose: 12.5 mls/hr Lorazepam (Lorazepam 0.5 Mg Tablet) 0.5 mg PO Q4HR PRN PRN Reason: CIWA Score 2-6 Stop: 08/21/24 08:08 Lorazepam (Lorazepam 0.5 Mg Tablet) 1 mg PO Q4HR PRN PRN Reason: CIWA SCORE 7-11 Stop: 08/21/24 08:08 Lorazepam (Lorazepam 0.5 Mg Tablet) 2 mg PO Q4HR PRN PRN Reason: CIWA SCORE 12-15 Stop: 08/21/24 08:08 Lorazepam (Lorazepam 2 Mg/Ml Vial) 1 mg IV X1 PRN PRN Reason: Breakthrough Agitation Midazolam HCl (Midazolam Inj 1 Mg/Ml Vial 2 Ml) 2 mg IV Q2M PRN PRN Reason: Moderate Sedation Stop: 08/16/24 10:49 Octreotide Acetate (Octreotide Acet Inj 50 Mcg/Ml Vial) 50 mcg IV X1 ONE Stop: 08/15/24 18:08 Last Admin: 08/15/24 18:55 Dose: 50 mcg Pantoprazole Sodium (Pantoprazole Inj 40 Mg Vial) 80 mg IV X1 ONE Stop: 08/15/24 18:08 Last Admin: 08/15/24 18:51 Dose: 80 mg Thiamine HCl (Thiamine 100 Mg Tablet) 100 mg PO BID PAULA Stop: 08/21/24 08:59 Last Admin: 08/19/24 08:07 Dose: 100 mg Assessment & Plan Plan 63 yo with PMH of alcohol use who presented do the ED due to hematemesis. Patient was admitted and found to have cirrhosis, upper EGD showed esophageal varices. Hepatitis panel was done which was positive for Hepatitis C, so ID was consulted. Patient was started on rocephin due to GI bleed. #Hepatitis C -Patient denies prior knowledge of hepatitis infection, has never received treatment for it -Denies common risk factors: Iv drugs, transfusions before the 90s, MSM. -Treatment is outpatient -Patient will need confirmation of infection (rule out false positive), viral load & genotype Efe of problems managed by primary team Patient's care discussed with attending physician, Dr Felicita Adame MD PGY3
[2024-08-17 20:00] VITALS: BP 107/61; PULSE 75; RESP 14; TEMP 36.6; O2SAT 95
[2024-08-18] VITALS: BP 103/83; PULSE 72; PULSE 83; RESP 13; TEMP 36.4; O2SAT 96
[2024-08-18 04:00] VITALS: BP 103/53; PULSE 68; PULSE 73; RESP 13; TEMP 36.4; O2SAT 96
[2024-08-18 05:46] LABS: Misc Send Out* See Sep Rpt
[2024-08-18 06:00] LABS: Basophils % (Auto) 1 % (0-2.5); Eosinophils # (Auto) 0.2 Thou/mm3 (0.0-0.5); Eosinophils % (Auto) 5 % (0-10); Hematocrit 23.9 % (41.0-53.0); Immature Granulocytes % (Auto) 0 % (0-0); Immature Granulocytes Auto 0.01 Thou/mm3 (0.00-0.00); Lymphocytes # (Auto) 1.1 Thou/mm3 (1.0-4.8); Lymphocytes % (Auto) 30 % (10-50); Mean Corpuscular HGB Conc 34.7 g/dl (31.0-37.0); Mean Corpuscular Hemoglobin 31.1 pg (25.0-35.0); Mean Corpuscular Volume 90 fL (80-100); Monocytes # (Auto) 0.4 Thou/mm3 (0.0-0.8); Monocytes % (Auto) 10 % (0-12); Neutrophils # (Auto) 1.9 Thou/mm3 (1.8-7.7); Neutrophils % (Auto) 54 % (37-80); Nucleated Red Blood Cell % 0 /100 WBC (0); Platelet Count 82 Thou/mm3 (140-440); Red Blood Count 2.67 Miln/mm3 (4.50-5.90); White Blood Count 3.6 Thou/mm3 (3.8-10.6)
[2024-08-18 06:16] LABS: Hemoglobin 8.3 g/dL (13.5-16.0)
[2024-08-18 06:53] LABS: Alanine Aminotransferase 50 U/L (10-49); Albumin, Serum 2.6 gm/dL (3.4-4.8); Albumin/Globulin Ratio 1.1 (1.2-2.2); Alkaline Phosphatase 60 U/L (46-116); Anion Gap 7 (7-16); Aspartate Amino Transferase 59 U/L (0-34); BUN/Creatinine Ratio 15 Ratio (12-20); Bilirubin,Total 0.9 mg/dL (0.3-1.2); Blood Urea Nitrogen 17 mg/dL (9-23); Calcium 7.4 mg/dL (8.3-10.6); Calcium (Corrected) 8.5 mg/dL (8.5-10.1); Carbon Dioxide 24.4 mMol/L (20.0-31.0); Chloride 110 mMol/L (98-107); Creatinine (Component) 1.1 mg/dL (0.6-1.3); Estimated Creatinine Clearance 57.2 mL/min (>60); Globulin 2.4 gm/dL (2.3-3.5); Glucose 123 mg/dL (74-106); Magnesium 2.2 mg/dL (1.6-2.6); Osmolality,Calculated 283 (275-295); Phosphorous 3.4 mg/dL (2.4-5.1); Sodium 141 mMol/L (136-145); eGFR > 60 See Note
[2024-08-18] MEDS: PANTOPRAZOLE/NS 80MG IV PREMIX 80 MG/100 ML BAG 10 MG IV (07:16)
[2024-08-18 08:00] VITALS: BP 98/61; PULSE 72; RESP 16; TEMP 36.6; O2SAT 99
--- NOTE | 2024-08-18 08:02 | EKG_ITS ---
[facility] Test Date: 2024-08-18 Pat Name: JAY SANON [facility] Gender: Male Auth Specialist: PAYTON : 1960 Requested By: Sheldon Yates Order Number: [id number] Reading MD: Sheldon Yates Measurements Intervals [place] Rate: 83 P: 66 NE: 125 QRS: 60 QRSD: 93 T: 49 QT: 358 QTc: 423 Interpretive Statements SINUS RHYTHM No previous ECG available for comparison /store/S0/[id number]/[id number].pdf
[2024-08-18] MEDS: THIAMINE 100 MG TABLET PO ×2 (08:27→21:25)
[2024-08-18] MEDS: FOLIC ACID 1 MG TABLET PO ×2 (08:27→21:25)
[2024-08-18] MEDS: OCTREOTIDE ACET INJ 1,000 MCG in SODIUM CHLORIDE 0.9% 100 ML 5.1 MCG IV (11:34)
[2024-08-18 12:00] VITALS: BP 103/75; PULSE 91; RESP 16; TEMP 36.3; O2SAT 98
--- NOTE | 2024-08-18 13:48 | PD.RESPRO ---
Documentation for date of: 08/18/24 Subjective Subjective Interval history: Patient was seen and examined in [facility] today. There were no major overnight events the patient had no complaints this morning. Patient had a bowel movement that was dark brown with some streaks of blood likely residual bleeding from esophageal varices. Will repeat H&H later today and continue to monitor patient for any more bleeding. Patient will continue octreotide drip and complete on 08/20/2024. Patient otherwise is tolerating diet well Exam Vital Signs Temp Pulse Resp BP Pulse Ox O2 Del Method O2 Flow Rate 97.3 F 91 16 103/75 98 Room Air 3 08/18/24 12:00 08/18/24 12:00 08/18/24 12:00 08/18/24 12:00 08/18/24 12:00 08/18/24 12:00 08/17/24 16:00 Narrative Exam Constitutional: Well nourished and in no acute distress CVS: RRR, S1 and S2 present, no murmurs, rubs or gallops . RESP: CTAB, no SOB, no rales, rhonchi or wheezing. No respiratory Distress GI: Normal BS, Nontender/Nondistended. MSK: Full range of motion, No trauma or deformities or masses. Skin: Warm to touch, Dry. No rashes or lesions. No hematomas Neuro: digital analyst II-XII grossly intact. Sensation grossly intact. Psych: (AAO) x3 . Appropriate mood and affect. Objective Labs 08/18/24 04:50 08/18/24 04:50 Labs: Laboratory Results - last 24 hr 08/18/24 04:50 WBC 3.6 L RBC 2.67 L Hgb 8.3 L Hct 23.9 L MCV 90 MCH 31.1 MCHC 34.7 RDW Std Deviation 44.0 H Plt Count 82 L Neut % (Auto) 54 Lymph % (Auto) 30 [place] % (Auto) 10 Eos % (Auto) 5 Baso % (Auto) 1 Neut # (Auto) 1.9 Lymph # (Auto) 1.1 [place] # (Auto) 0.4 Eos # (Auto) 0.2 Baso # (Auto) 0.0 Immature Gran # (Auto) 0.01 H Absolute Nucleated RBC 0.00 Immature Gran % 0 Nucleated RBC % 0 Sodium 141 Potassium 4.0 Chloride 110 H Carbon Dioxide 24.4 Anion Gap 7 BUN 17 Creatinine 1.1 Estim Creat Clear Calc 57.2 L eGFR > 60 BUN/Creatinine Ratio 15 Glucose 123 H Calculated Osmolality 283 Calcium 7.4 L Corrected Calcium 8.5 Phosphorus 3.4 Magnesium 2.2 Total Bilirubin 0.9 D AST 59 H ALT 50 H Alkaline Phosphatase 60 Total Protein 5.0 L Albumin 2.6 L Globulin 2.4 Albumin/Globulin Ratio 1.1 L Quality Measures Quality Measures none Advance care planning discussed with:: patient Assessment & Plan Assessment Current Active Medications: Generic Name Dose Route Start Last Admin Trade Name Freq PRN Reason Stop Dose Admin Acetaminophen 650 mg 08/15/24 20:07 Acetaminophen 325 Mg Tablet PO 09/14/24 20:06 Q6H PRN Fever >100 or pain 1-3 Folic Acid 1 mg 08/16/24 09:00 08/18/24 08:27 Folic Acid 1 Mg Tablet PO 08/21/24 08:59 1 mg BID PAULA Administration Pantoprazole Sodium 80 mg in 100 mls @ 10 mls/hr 08/15/24 20:10 08/18/24 07:16 Protonix/Ns 80mg Iv Premix IV 08/18/24 18:09 10 mls/hr Q10H PAULA Administration Octreotide Acetate 1,000 mcg/ 102 mls @ 5.1 mls/hr 08/16/24 09:30 08/18/24 11:34 Sodium Chloride IV 08/20/24 09:29 50 mcg/hr .Q20H PAULA 5.1 mls/hr Administration Protocol 50 MCG/HR Lorazepam 0.5 mg 08/16/24 08:09 Lorazepam 0.5 Mg Tablet PO 08/21/24 08:08 Q4HR PRN CIWA Score 2-6 Lorazepam 1 mg 08/16/24 08:09 Lorazepam 0.5 Mg Tablet PO 08/21/24 08:08 Q4HR PRN CIWA SCORE 7-11 Lorazepam 2 mg 08/16/24 08:09 Lorazepam 0.5 Mg Tablet PO 08/21/24 08:08 Q4HR PRN CIWA SCORE 12-15 Lorazepam 1 mg 08/16/24 08:09 Lorazepam 2 Mg/Ml Vial IV X1 PRN Breakthrough Agitation Ondansetron HCl 4 mg 08/15/24 20:07 Ondansetron Inj 2 Mg/Ml Inj 2 Ml IV 04/25/25 20:06 Q6H PRN NAUSEA OR VOMITING Protocol Thiamine HCl 100 mg 08/16/24 09:00 08/18/24 08:27 Thiamine 100 Mg Tablet PO 08/21/24 08:59 100 mg BID PAULA Administration Plan 63-year-old male with past medical history of polysubstance use disorder, alcohol use disorder, hepatitis C, cirrhosis who presented to the hospital with melena and hematemesis; moreover, admitted for upper GI bleed likely secondary to alcohol induced cirrhosis #Upper GI Bleed #Esophageal varices secondary to cirrhosis, alcohol induced #Acute blood loss anemia #Symptomatic anemia Hematemesis, melena, hypotension with tachycardia (HR 101, BP 106/70) Anemia (Hb 8.1), elevated BUN (28), normal Cr (0.9) ? BUN/Cr ratio >20 suggestive of UGIB History of alcohol use disorder, cirrhosis on imaging, and low albumin (3.0) Elevated AST > ALT; possible alcoholic liver disease Hepatic lesion (30 mm low-density), trace ascites ? possible HCC or regenerative nodule NSAID use: Uses NSAIDS, last time was yesterday Iron panel shows: Iron of 24, TIBC 265, iron saturation 9% and reticulocyte count is elevated as expected EGD completed with Dr. cMkeon on 03/18 showed grade 2 esophageal varices which were banded, gastritis with hemorrhage Plan: 2 g sodium diet tolerating Transfuse PRBCs for Hb <7 or hemodynamic instability IV octreotide day 4 of 5 Continue protonix IV Rocephin discontinued by ID as there is low suspicion for SBP (minimal to no ascites, no fever) GI consulted, appreciate recs Pending peripheral blood smear Avoid any NSAIDs Outpatient colonoscopy #Cirrhosis secondary to alcohol use disorder #Hepatitis C positive #Possible cholelithiasis? Hepatic lesion (30 mm low-density), trace ascites ? possible HCC or regenerative nodule Hepatitis C was positive on blood draw today HCC could be possible due to drug hx and hepatitis C CT also shows cirrhosis of liver AFP elevated 69.10; normal is less than 8.10 HIV nonreactive MRI with and without contrast of the abdomen ordered shows: Cirrhosis, no liver lesions confirmed. Prominent splenomegaly. Cholelithiasis, marked wall thickening and edema involving the gallbladder Plan: Will trend LFTs, will not obtain HIDA as the patient is asymptomatic currently Infectious disease consulted for Hepatitis C, no treatment per ID note Hepatitis C viral load ordered Trend PT/INR, PTT #Alcohol use disorder Was in remission from [id number] Patient apparently drinks around 6 beers 4-5 times a week Last drink was 08/11 per patient [facility] assessments have been 0 so far Plan: Counseled on complete alcohol cessation and the patient is agreeable [facility] protocol Folic and Thiamine supplementation director of consulting services consulted for support as the patient currently lives alone #Hypothyroidism Likely secondary to pituitary adenoma versus tertiary hypothyroidism Patient's TSH 0.37 and free T4 0.86 Patient is not on any medications at this time Hypothyroidism possibly secondary to acute hospitalization/acutely ill status Plan: Follow-up outpatient with PCP and possible endocrinology referral Outpatient prolactin level for pituitary adenoma Hospital Management: Lines: PIV Diet: Clear liquid, advancing to low-sodium on 08/17 Bowel: Not needed at this time GI prophylaxis: On Protonix and octreotide DVT prophylaxis: SCD Dispo: Needs to complete 5 days of octreotide drip for esophageal varices, and workup for possible HCC Code: Full I discussed patient's care with attending physician, Dr Lynda Henriquez PGY3 Attending Provider Attestation/Addendum I attest that I was physically present for the evaluation, physical examination, lab and imaging review of the patient with the residents. I discussed the case with the residents and agree with the findings and plans of care as documented above. At bedside today, patient states she is feeling well and does not have any complaints. His LFTs are improving, hemoglobin is stable at 8.3 today. Does not have any signs of further bleeding. Able to tolerate his diet vital signs and lab results have been stable. Continues to be on Protonix drip and octreotide drip. . Deborah Howell MD
[2024-08-18 16:00] VITALS: BP 113/65; PULSE 79; RESP 18; TEMP 36.8; O2SAT 97
--- NOTE | 2024-08-18 17:55 | ESPR_ITS ---
Documentation for date of: 08/18/24 Subjective Subjective Interval history: Patient evaluated Hemoglobin hematocrit 8.3 and 23.9 On octreotide infusion Exam Vital Signs Temp Pulse Resp BP Pulse Ox O2 Del Method O2 Flow Rate 98.3 F 79 18 113/65 97 Room Air 3 08/18/24 16:00 08/18/24 16:00 08/18/24 16:00 08/18/24 16:00 08/18/24 16:00 08/18/24 16:00 08/17/24 16:00 Objective Labs 08/18/24 04:50 08/18/24 04:50 Labs: Laboratory Results - last 24 hr 08/18/24 04:50 WBC 3.6 L RBC 2.67 L Hgb 8.3 L Hct 23.9 L MCV 90 MCH 31.1 MCHC 34.7 RDW Std Deviation 44.0 H Plt Count 82 L Neut % (Auto) 54 Lymph % (Auto) 30 [place] % (Auto) 10 Eos % (Auto) 5 Baso % (Auto) 1 Neut # (Auto) 1.9 Lymph # (Auto) 1.1 [place] # (Auto) 0.4 Eos # (Auto) 0.2 Baso # (Auto) 0.0 Immature Gran # (Auto) 0.01 H Absolute Nucleated RBC 0.00 Immature Gran % 0 Nucleated RBC % 0 Sodium 141 Potassium 4.0 Chloride 110 H Carbon Dioxide 24.4 Anion Gap 7 BUN 17 Creatinine 1.1 Estim Creat Clear Calc 57.2 L eGFR > 60 BUN/Creatinine Ratio 15 Glucose 123 H Calculated Osmolality 283 Calcium 7.4 L Corrected Calcium 8.5 Phosphorus 3.4 Magnesium 2.2 Total Bilirubin 0.9 D AST 59 H ALT 50 H Alkaline Phosphatase 60 Total Protein 5.0 L Albumin 2.6 L Globulin 2.4 Albumin/Globulin Ratio 1.1 L Impressions Impression: # Esophageal variceal bleeding requiring band ligation # Esophageal ulceration Continue current management Assessment & Plan A&P Narrative hep c. liver mass, not seen on subsequent mri though. u/s may be a better imaging modality for that process gi bleeding cirrhosis with varices hep c rx is never started in hospital due to cost. no hospital worldwide carries the meds as far as I know. cost if 60-90k for 12 weeks and it does not reverse cirrhosis. stopped the rocephin as no eval for bacteremia done and no fever. home at your discretion avoid etoh completely in the future. it takes 5-7d for the labs to return and they will not be sent out till tuesday, so there is no point in him waiting here. note that hiv neg and never incarcerated or used iv drugs. 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 Time Spent With Patient Time: Total time spent is greater than 50% in coordination of care (as documented) at patient's floor/unit and/or counseling patient:
[2024-08-18 20:00] VITALS: BP 125/75; PULSE 85; PULSE 90; RESP 16; TEMP 37.3; O2SAT 98
[2024-08-18 20:15] LABS: Hematocrit 24.2 % (41.0-53.0)
[2024-08-18 20:16] LABS: Hemoglobin 8.6 g/dL (13.5-16.0)
--- NOTE | 2024-08-18 21:39 | XR_ITS ---
Examination: Duplex scan of the upper extremity, unilateral right Date and time of exam: August 18, 2024 at 11:41 PM INDICATIONS: Right hand swelling and pain at the IV site in the radial region noticed beginning 2 hours ago Technique: Duplex scan of the extremity veins using B-mode/grayscale imaging and Doppler spectral analysis and color flow Attention is directed to internal echogenicity, compression and augmentation involving these veins, color flow assessment, spectral analysis Findings: Major deep venous structures in the extremity demonstrate normal course and caliber. There is no evidence of deep vein thrombosis. Normal color flow and spectral analysis Impression: Negative for DVT.. Positive for thrombus in a superficial vein in the radial region at the site of the patient's IV
--- NOTE | 2024-08-18 23:29 | PC.NURSE ---
Dr. Griffin notified of night monitor calls with patient having a wide bundle branch block and inverted P-waves; then later accelerated junctional rhythm still with bundle branch block and then later sinus rhythm. Patient has been asymptomatic and has not complained of chest pain or discomfort. Will continue to closely monitor patient.
[2024-08-19] VITALS: BP 126/75; PULSE 78; PULSE 85; RESP 18; TEMP 37.1; O2SAT 98
--- NOTE | 2024-08-19 01:52 | PC.NURSE ---
Dr. Wheeler notified of ultrasound results for right arm, which showed occlusive thrombus.
--- NOTE | 2024-08-19 01:55 | PRELIM_ITS ---
Right upper extremity venous Doppler ultrasound with wave Doppler spectral analysis. August 18, 2024 2341 hours Clinical history: Rule out thrombophlebitis. Technique: Duplex scan of the right arm performed utilizing, 2D grayscale imaging, Doppler spectral analysis and color flow Doppler with compression. Comparison: None. Findings: The internal jugular vein is patent and compressible. The brachiocephalic vein is patent. The subclavian vein is patent. The axillary and brachial veins are patent and demonstrate good compression and augmentation. The cephalic and basilic veins are patent and demonstrate good compression. The ulnar vein is patent and compressible. No evidence of thrombosis. Occlusive thrombus in the superficial vein in the radial region. Impression: No evidence of deep vein thrombosis. Occlusive thrombus in the superficial vein in the radial region. Discussion Details: Results verbally communicated to Mikie Thakkar RN at 04.48 AM ET 08/19/2024 physician to physician communication contacts details was communicated Report Electronically Signed By: Padilla Back 08/19/2024 1:54:55 AM [EST]
[2024-08-19 04:00] VITALS: BP 93/55; PULSE 74; PULSE 77; RESP 16; TEMP 36.7; O2SAT 98
[2024-08-19 06:00] VITALS: BMI 19.1
[2024-08-19 08:00] VITALS: BP 107/69; PULSE 83; PULSE 87; RESP 17; TEMP 36.5; O2SAT 95
[2024-08-19] MEDS: THIAMINE 100 MG TABLET PO (08:07)
[2024-08-19] MEDS: FOLIC ACID 1 MG TABLET PO (08:07)
[2024-08-19 08:42] LABS: Basophils % (Auto) 0 % (0-2.5); Eosinophils # (Auto) 0.2 Thou/mm3 (0.0-0.5); Eosinophils % (Auto) 4 % (0-10); Hematocrit 24.9 % (41.0-53.0); Immature Granulocytes % (Auto) 0 % (0-0); Immature Granulocytes Auto 0.01 Thou/mm3 (0.00-0.00); Lymphocytes # (Auto) 1.3 Thou/mm3 (1.0-4.8); Lymphocytes % (Auto) 23 % (10-50); Mean Corpuscular HGB Conc 34.9 g/dl (31.0-37.0); Mean Corpuscular Hemoglobin 31.4 pg (25.0-35.0); Mean Corpuscular Volume 90 fL (80-100); Monocytes # (Auto) 0.5 Thou/mm3 (0.0-0.8); Monocytes % (Auto) 9 % (0-12); Neutrophils # (Auto) 3.5 Thou/mm3 (1.8-7.7); Neutrophils % (Auto) 63 % (37-80); Nucleated Red Blood Cell % 0 /100 WBC (0); Platelet Count 105 Thou/mm3 (140-440); RDW Standard Deviation 44.5 fL (35.1-43.9); Red Blood Count 2.77 Miln/mm3 (4.50-5.90); White Blood Count 5.6 Thou/mm3 (3.8-10.6)
[2024-08-19 08:47] LABS: Hemoglobin 8.7 g/dL (13.5-16.0)
[2024-08-19 09:03] LABS: Alanine Aminotransferase 44 U/L (10-49); Albumin, Serum 2.8 gm/dL (3.4-4.8); Albumin/Globulin Ratio 1.1 (1.2-2.2); Alkaline Phosphatase 65 U/L (46-116); Anion Gap 6 (7-16); Aspartate Amino Transferase 48 U/L (0-34); BUN/Creatinine Ratio 14 Ratio (12-20); Bilirubin,Total 1.6 mg/dL (0.3-1.2); Blood Urea Nitrogen 15 mg/dL (9-23); Calcium 7.5 mg/dL (8.3-10.6); Calcium (Corrected) 8.5 mg/dL (8.5-10.1); Carbon Dioxide 24.3 mMol/L (20.0-31.0); Chloride 107 mMol/L (98-107); Creatinine (Component) 1.1 mg/dL (0.6-1.3); Estimated Creatinine Clearance 57.2 mL/min (>60); Globulin 2.6 gm/dL (2.3-3.5); Glucose 181 mg/dL (74-106); Osmolality,Calculated 279 (275-295); Potassium 4.1 mMol/L (3.4-5.1); Sodium 137 mMol/L (136-145); Total Protein 5.4 gm/dL (5.7-8.2); eGFR > 60 See Note
[2024-08-19] MEDS: OCTREOTIDE ACET INJ 1,000 MCG in SODIUM CHLORIDE 0.9% 100 ML 5.1 MCG IV (10:28)
[2024-08-19 12:00] VITALS: BP 118/67; PULSE 70; PULSE 80; RESP 17; TEMP 36.4; O2SAT 98
--- NOTE | 2024-08-19 12:13 | PD.RESPRO ---
Documentation for date of: 08/19/24 Subjective Subjective Interval history: 08/19/2024: Overnight the patient did have right upper extremity swelling and redness which the night team ordered a venous Doppler ultrasound for. Patient seen and assessed in hospital bed reports marked improvement in presenting symptoms and denies having any concerning symptoms such as chest pain/tightness, shortness of breath, abdominal pain, recurrent melena/hematochezia or hematemesis. Patient's Doppler ultrasound did show a superficial thrombus in the radial vein which has improved since first noticed overnight. Patient is completing last day of IV octreotide treatment and will follow-up with Dr. Mckeon outpatient for colonoscopy. Expecting discharge within the next 24 hours if he remains stable. Exam Vital Signs Temp Pulse Resp BP Pulse Ox O2 Del Method O2 Flow Rate 97.7 F 83 17 107/69 95 Room Air 3 08/19/24 08:00 08/19/24 08:00 08/19/24 08:00 08/19/24 08:00 08/19/24 08:00 08/19/24 08:00 08/17/24 16:00 Narrative Exam Physical Exam: Constitutional: Well nourished and in no acute distress CVS: RRR, S1 and S2 present, no murmurs, rubs or gallops . RESP: CTAB, no SOB, no rales, rhonchi or wheezing. No respiratory Distress GI: Normal BS, Nontender/Nondistended. MSK: Full range of motion, No trauma or deformities or masses. Skin: Warm to touch, Dry. No rashes or lesions. 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 Sensation grossly intact. Psych: (AAO) x3 . Appropriate mood and affect. Objective Labs 08/19/24 08:16 08/19/24 08:16 Labs: Laboratory Results - last 24 hr 08/18/24 08/19/24 19:40 08:16 WBC 5.6 D RBC 2.77 L Hgb 8.6 L 8.7 L Hct 24.2 L 24.9 L MCV 90 MCH 31.4 MCHC 34.9 RDW Std Deviation 44.5 H Plt Count 105 L D Neut % (Auto) 63 Lymph % (Auto) 23 [place] % (Auto) 9 Eos % (Auto) 4 Baso % (Auto) 0 Neut # (Auto) 3.5 Lymph # (Auto) 1.3 [place] # (Auto) 0.5 Eos # (Auto) 0.2 Baso # (Auto) 0.0 Immature Gran # (Auto) 0.01 H Absolute Nucleated RBC 0.00 Immature Gran % 0 Nucleated RBC % 0 Sodium 137 Potassium 4.1 Chloride 107 Carbon Dioxide 24.3 Anion Gap 6 L BUN 15 Creatinine 1.1 Estim Creat Clear Calc 57.2 L eGFR > 60 BUN/Creatinine Ratio 14 Glucose 181 H D Calculated Osmolality 279 Calcium 7.5 L Corrected Calcium 8.5 Total Bilirubin 1.6 H D AST 48 H ALT 44 Alkaline Phosphatase 65 Total Protein 5.4 L Albumin 2.8 L Globulin 2.6 Albumin/Globulin Ratio 1.1 L Quality Measures Quality Measures none Advance care planning discussed with:: patient Assessment & Plan Assessment Current Active Medications: Generic Name Dose Route Start Last Admin Trade Name Freq PRN Reason Stop Dose Admin Acetaminophen 650 mg 08/15/24 20:07 Acetaminophen 325 Mg Tablet PO 09/14/24 20:06 Q6H PRN Fever >100 or pain 1-3 Octreotide Acetate 1,000 mcg/ 102 mls @ 5.1 mls/hr 08/16/24 09:30 08/19/24 10:28 Sodium Chloride IV 08/20/24 09:29 50 mcg/hr .Q20H PAULA 5.1 mls/hr Administration Protocol 50 MCG/HR Ondansetron HCl 4 mg 08/15/24 20:07 Ondansetron Inj 2 Mg/Ml Inj 2 Ml IV 09/14/24 20:06 Q6H PRN NAUSEA OR VOMITING Protocol Plan 63-year-old male with past medical history of polysubstance use disorder, alcohol use disorder, hepatitis C, cirrhosis who presented to the hospital with melena and hematemesis; moreover, admitted for upper GI bleed likely secondary to alcohol induced cirrhosis #Upper GI Bleed #Esophageal varices secondary to cirrhosis, alcohol induced #Acute blood loss anemia #Symptomatic anemia Hematemesis, melena, hypotension with tachycardia (HR 101, BP 106/70) Anemia (Hb 8.1), elevated BUN (28), normal Cr (0.9) ? BUN/Cr ratio >20 suggestive of UGIB History of alcohol use disorder, cirrhosis on imaging, and low albumin (3.0) Elevated AST > ALT; possible alcoholic liver disease Hepatic lesion (30 mm low-density), trace ascites ? possible HCC or regenerative nodule NSAID use: Uses NSAIDS, last time was yesterday Iron panel shows: Iron of 24, TIBC 265, iron saturation 9% and reticulocyte count is elevated as expected EGD completed with Dr. Mckeon on 03/18 showed grade 2 esophageal varices which were banded, gastritis with hemorrhage Peripheral smear shows moderate normocytic normochromic anemia with unremarkable red blood cell morphology and unremarkable platelets/granulocytes. Plan: 2 g sodium diet tolerating Transfuse PRBCs for Hb <7 or hemodynamic instability IV octreotide day 5 of 5 Continue protonix IV GI consulted, appreciate recs; patient will require colonoscopy outpatient with Dr. Mckeon Avoid any NSAIDs #Cirrhosis secondary to alcohol use disorder #Hepatitis C positive #Possible cholelithiasis? Hepatic lesion (30 mm low-density), trace ascites ? possible HCC or regenerative nodule Hepatitis C was positive on blood draw today HCC could be possible due to drug hx and hepatitis C CT also shows cirrhosis of liver AFP elevated 69.10; normal is less than 8.10 HIV nonreactive MRI with and without contrast of the abdomen ordered shows: Cirrhosis, no liver lesions confirmed. Prominent splenomegaly. Cholelithiasis, marked wall thickening and edema involving the gallbladder Plan: Will trend LFTs, will not obtain HIDA as the patient is asymptomatic currently Infectious disease consulted for Hepatitis C, no treatment per ID note Hepatitis C viral load ordered Trend PT/INR, PTT #Alcohol use disorder Was in remission from [id number] Patient apparently drinks around 6 beers 4-5 times a week Last drink was 08/11 per patient [facility] assessments have been 0 so far Plan: Counseled on complete alcohol cessation and the patient is agreeable [facility] protocol Folic and Thiamine supplementation clinical services professional consulted for support as the patient currently lives alone #Hypothyroidism Likely secondary to pituitary adenoma versus tertiary hypothyroidism Patient's TSH 0.37 and free T4 0.86 Patient is not on any medications at this time Hypothyroidism possibly secondary to acute hospitalization/acutely ill status Plan: Follow-up outpatient with PCP and possible endocrinology referral Outpatient prolactin level for pituitary adenoma Hospital Management: Lines: PIV Diet: low-sodium Bowel: Not needed at this time GI prophylaxis: On Protonix and octreotide DVT prophylaxis: SCD Dispo: Needs to complete 5 days of octreotide drip for esophageal varices, and workup for possible HCC Code: Full Patient seen and assessed with attending Dr. Howell and senior resident Dr. Florence Renner, PGY-1 --- ATTESTATION: I saw and examined the patient this morning, and I agree with current management stated by the resident. Will continue to monitor patient during their stay. Disclaimer: Despite multiple revisions, due to the dictation software being used, the document bellow may not be free of grammatical errors including phonetic/typographic errors. However, this does not deter from our commitment to providing health care in the patient's best interest in mind. Dr. Sheldon Henriquez, PGY-3 Attending Provider Attestation/Addendum I attest that I was physically present for the evaluation, physical examination, lab and imaging review of the patient with the residents. I discussed the case with the residents and agree with the findings and plans of care as documented above. At bedside today, patient is states she does not have any complaints. Has been tolerating his diet, denies abdominal pain. Continues to be on Protonix. Will finish his octreotide GTT tomorrow, likely discharge tomorrow. Deborah Howell MD
--- NOTE | 2024-08-19 15:59 | PD.IMPROG ---
Documentation for date of: 08/19/24 Subjective Subjective Interval history: Hemoglobin hematocrit 8.7 and 24.9 Patient status post band ligation of the esophageal varices in addition patient has distal esophageal ulcers Exam Vital Signs Temp Pulse Resp BP Pulse Ox O2 Del Method O2 Flow Rate 97.5 F 80 17 118/67 98 Room Air 3 08/19/24 12:00 08/19/24 12:00 08/19/24 12:00 08/19/24 12:00 08/19/24 12:00 08/19/24 12:00 08/17/24 16:00 Objective Labs 08/19/24 08:16 08/19/24 08:16 Labs: Laboratory Results - last 24 hr 08/18/24 08/19/24 19:40 08:16 WBC 5.6 D RBC 2.77 L Hgb 8.6 L 8.7 L Hct 24.2 L 24.9 L MCV 90 MCH 31.4 MCHC 34.9 RDW Std Deviation 44.5 H Plt Count 105 L D Neut % (Auto) 63 Lymph % (Auto) 23 [place] % (Auto) 9 Eos % (Auto) 4 Baso % (Auto) 0 Neut # (Auto) 3.5 Lymph # (Auto) 1.3 [place] # (Auto) 0.5 Eos # (Auto) 0.2 Baso # (Auto) 0.0 Immature Gran # (Auto) 0.01 H Absolute Nucleated RBC 0.00 Immature Gran % 0 Nucleated RBC % 0 Sodium 137 Potassium 4.1 Chloride 107 Carbon Dioxide 24.3 Anion Gap 6 L BUN 15 Creatinine 1.1 Estim Creat Clear Calc 57.2 L eGFR > 60 BUN/Creatinine Ratio 14 Glucose 181 H D Calculated Osmolality 279 Calcium 7.5 L Corrected Calcium 8.5 Total Bilirubin 1.6 H D AST 48 H ALT 44 Alkaline Phosphatase 65 Total Protein 5.4 L Albumin 2.8 L Globulin 2.6 Albumin/Globulin Ratio 1.1 L Impressions Impression: # Esophageal variceal bleeding requiring band ligation of the esophageal varices # Distal esophageal ulceration Continue current management Assessment & Plan A&P Narrative hep c. liver mass, not seen on subsequent mri though. u/s may be a better imaging modality for that process gi bleeding cirrhosis with varices hep c rx is never started in hospital due to cost. no hospital worldwide carries the meds as far as I know. cost if 60-90k for 12 weeks and it does not reverse cirrhosis. stopped the rocephin as no eval for bacteremia done and no fever. home at your discretion avoid etoh completely in the future. it takes 5-7d for the labs to return and they will not be sent out till tuesday, so there is no point in him waiting here. note that hiv neg and never incarcerated or used iv drugs. 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 Time Spent With Patient Time: Total time spent is greater than 50% in coordination of care (as documented) at patient's floor/unit and/or counseling patient:
[2024-08-19 16:00] VITALS: BP 109/58; PULSE 66; PULSE 68; RESP 16; TEMP 36.6; O2SAT 98
[2024-08-19 20:00] VITALS: BP 113/63; PULSE 72; PULSE 92; RESP 17; TEMP 36.9; O2SAT 98
[2024-08-20] VITALS: BP 110/52; PULSE 66; PULSE 69; RESP 17; TEMP 37.3; O2SAT 98
[2024-08-20 04:00] VITALS: BP 93/58; PULSE 69; PULSE 79; RESP 13; TEMP 36.7; O2SAT 99
[2024-08-20] MEDS: OCTREOTIDE ACET INJ 1,000 MCG in SODIUM CHLORIDE 0.9% 100 ML 5.1 MCG IV (05:20)
[2024-08-20 06:08] LABS: Basophils % (Auto) 1 % (0-2.5); Eosinophils # (Auto) 0.3 Thou/mm3 (0.0-0.5); Eosinophils % (Auto) 7 % (0-10); Hematocrit 24.1 % (41.0-53.0); Immature Granulocytes % (Auto) 0 % (0-0); Immature Granulocytes Auto 0.02 Thou/mm3 (0.00-0.00); Lymphocytes # (Auto) 1.3 Thou/mm3 (1.0-4.8); Lymphocytes % (Auto) 29 % (10-50); Mean Corpuscular HGB Conc 34.9 g/dl (31.0-37.0); Mean Corpuscular Hemoglobin 31.2 pg (25.0-35.0); Mean Corpuscular Volume 90 fL (80-100); Monocytes # (Auto) 0.5 Thou/mm3 (0.0-0.8); Monocytes % (Auto) 11 % (0-12); Neutrophils # (Auto) 2.4 Thou/mm3 (1.8-7.7); Neutrophils % (Auto) 53 % (37-80); Nucleated Red Blood Cell % 0 /100 WBC (0); Platelet Count 90 Thou/mm3 (140-440); RDW Standard Deviation 44.5 fL (35.1-43.9); Red Blood Count 2.69 Miln/mm3 (4.50-5.90); White Blood Count 4.5 Thou/mm3 (3.8-10.6)
[2024-08-20 06:13] LABS: Hemoglobin 8.4 g/dL (13.5-16.0)
[2024-08-20 06:35] LABS: Alanine Aminotransferase 38 U/L (10-49); Albumin, Serum 2.7 gm/dL (3.4-4.8); Alkaline Phosphatase 61 U/L (46-116); Anion Gap 8 (7-16); Aspartate Amino Transferase 47 U/L (0-34); BUN/Creatinine Ratio 19 Ratio (12-20); Blood Urea Nitrogen 15 mg/dL (9-23); Calcium 8.3 mg/dL (8.3-10.6); Calcium (Corrected) 9.3 mg/dL (8.5-10.1); Carbon Dioxide 23.4 mMol/L (20.0-31.0); Chloride 110 mMol/L (98-107); Creatinine (Component) 0.8 mg/dL (0.6-1.3); Estimated Creatinine Clearance 78.6 mL/min (>60); Globulin 2.7 gm/dL (2.3-3.5); Glucose 112 mg/dL (74-106); Osmolality,Calculated 283 (275-295); Potassium 4.4 mMol/L (3.4-5.1); Sodium 141 mMol/L (136-145); Total Protein 5.4 gm/dL (5.7-8.2); eGFR > 60 See Note
[2024-08-20 07:51] VITALS: PULSE 79
[2024-08-20 08:00] VITALS: BP 109/53; PULSE 75; RESP 15; TEMP 36.2; O2SAT 98
--- NOTE | 2024-08-20 09:22 | PD.IDPROG ---
Subjective Subjective Interval history: tests pending for hep c. afebrile off abx. here for gi bleed Exam Vital Signs Temp Pulse Resp BP Pulse Ox O2 Del Method O2 Flow Rate 97.1 F 75 15 109/53 L 98 Room Air 3 08/20/24 08:00 08/20/24 08:00 08/20/24 08:00 08/20/24 08:00 08/20/24 08:00 08/20/24 08:00 08/17/24 16:00 Narrative Exam limited eval today Objective - Internal Medicine Labs 08/20/24 04:52 08/20/24 04:52 Labs: Laboratory Results - last 24 hr 08/18/24 08/20/24 04:50 04:52 WBC 4.5 RBC 2.69 L Hgb 8.4 L Hct 24.1 L MCV 90 MCH 31.2 MCHC 34.9 RDW Std Deviation 44.5 H Plt Count 90 L Neut % (Auto) 53 Lymph % (Auto) 29 [place] % (Auto) 11 Eos % (Auto) 7 Baso % (Auto) 1 Neut # (Auto) 2.4 Lymph # (Auto) 1.3 [place] # (Auto) 0.5 Eos # (Auto) 0.3 Baso # (Auto) 0.0 Immature Gran # (Auto) 0.02 H Absolute Nucleated RBC 0.00 Immature Gran % 0 Nucleated RBC % 0 Sodium 141 Potassium 4.4 Chloride 110 H Carbon Dioxide 23.4 Anion Gap 8 BUN 15 Creatinine 0.8 Estim Creat Clear Calc 78.6 eGFR > 60 BUN/Creatinine Ratio 19 Glucose 112 H D Calculated Osmolality 283 Calcium 8.3 Corrected Calcium 9.3 Total Bilirubin 1.0 D AST 47 H ALT 38 Alkaline Phosphatase 61 Total Protein 5.4 L Albumin 2.7 L Globulin 2.7 Albumin/Globulin Ratio 1.0 L Tumor Marker AFP 62.10 H Assessment & Plan A&P Narrative hep c. liver mass, not seen on subsequent mri though. u/s may be a better imaging modality for that process gi bleeding cirrhosis with varices hep c rx is never started in hospital due to cost. no hospital worldwide carries the meds as far as I know. cost if 60-90k for 12 weeks and it does not reverse cirrhosis. startin rx in house dose not assure he will get the med either. stopped the rocephin on thursday 08/17 as no eval for bacteremia done and no fever. home at your discretion avoid etoh completely in the future. it takes 5-7d for the labs to return and they will not be sent out till tuesday, so there is no point in him waiting here. note that hiv neg and never incarcerated or used iv drugs. 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 Time Spent With Patient Time: Total time spent is greater than 50% in coordination of care (as documented) at patient's floor/unit and/or counseling patient:
--- NOTE | 2024-08-20 09:26 | EKG_ITS ---
[facility] Test Date: 2024-08-20 Pat Name: JAY SANON [facility] Gender[facility] Male [employer] C[employer]: STEVE : 1960 Requested By: Ziggy Renner Order Number: [id number] Reading MD: Ziggy Renner Measurements Intervals [place] Rate: 72 P: -62 PA: 112 QRS: 53 QRSD: 102 T: 54 QT: 384 QTc: 422 Interpretive Statements JUNCTIONAL RHYTHM ABNORMAL RHYTHM ECG Compared to ECG 08/18/2024 10:07:53 Junctional rhythm now present Sinus rhythm no longer present /store/S0/[id number].pdf
[2024-08-20 11:10] LABS: Magnesium 1.9 mg/dL (1.6-2.6)
--- NOTE | 2024-08-20 11:54 | PC.SS ---
Follow up note: DC today. Pt completed IV Octreotide today. Pt will return home.
[2024-08-20 12:00] VITALS: BP 122/66; PULSE 72; PULSE 74; RESP 18; TEMP 36.5; O2SAT 99
--- NOTE | 2024-08-20 12:04 | ESPR_ITS ---
Documentation for date of: 08/20/24 Subjective Subjective Interval history: Patient evaluated okay with the discharge planning Patient to be followed by the PCP Exam Vital Signs Temp Pulse Resp BP Pulse Ox O2 Del Method O2 Flow Rate 97.1 F 75 15 109/53 L 98 Room Air 3 08/20/24 08:00 08/20/24 08:00 08/20/24 08:00 08/20/24 08:00 08/20/24 08:00 08/20/24 08:00 08/17/24 16:00 Objective Labs 08/20/24 04:52 08/20/24 04:52 Labs: Laboratory Results - last 24 hr 08/18/24 08/20/24 08/20/24 04:50 04:52 10:43 WBC 4.5 RBC 2.69 L Hgb 8.4 L Hct 24.1 L MCV 90 MCH 31.2 MCHC 34.9 RDW Std Deviation 44.5 H Plt Count 90 L Neut % (Auto) 53 Lymph % (Auto) 29 [place] % (Auto) 11 Eos % (Auto) 7 Baso % (Auto) 1 Neut # (Auto) 2.4 Lymph # (Auto) 1.3 [place] # (Auto) 0.5 Eos # (Auto) 0.3 Baso # (Auto) 0.0 Immature Gran # (Auto) 0.02 H Absolute Nucleated RBC 0.00 Immature Gran % 0 Nucleated RBC % 0 Sodium 141 Potassium 4.4 Chloride 110 H Carbon Dioxide 23.4 Anion Gap 8 BUN 15 Creatinine 0.8 Estim Creat Clear Calc 78.6 eGFR > 60 BUN/Creatinine Ratio 19 Glucose 112 H D Calculated Osmolality 283 Calcium 8.3 Corrected Calcium 9.3 Magnesium 1.9 Total Bilirubin 1.0 D AST 47 H ALT 38 Alkaline Phosphatase 61 Total Protein 5.4 L Albumin 2.7 L Globulin 2.7 Albumin/Globulin Ratio 1.0 L Tumor Marker AFP 62.10 H Impressions Impression: Esophageal variceal bleeding requiring band ligation Esophageal ulceration Plan Okay to discharge patient home to be followed by the PCP Continue omeprazole Assessment & Plan A&P Narrative hep c. liver mass, not seen on subsequent mri though. u/s may be a better imaging modality for that process gi bleeding cirrhosis with varices hep c rx is never started in hospital due to cost. no hospital worldwide carries the meds as far as I know. cost if 60-90k for 12 weeks and it does not reverse cirrhosis. startin rx in house dose not assure he will get the med either. stopped the rocephin on thursday 08/17 as no eval for bacteremia done and no fever. home at your discretion avoid etoh completely in the future. it takes 5-7d for the labs to return and they will not be sent out till tuesday, so there is no point in him waiting here. note that hiv neg and never incarcerated or used iv drugs. 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 Time Spent With Patient Time: Total time spent is greater than 50% in coordination of care (as documented) at patient's floor/unit and/or counseling patient:
--- NOTE | 2024-08-20 13:10 | ESDS_ITS ---
<Statement entered by Marcus Figueroa MD - 08/21/24 21:47> Patient seen and examined at bedside with resident, agree with assessment and plan as documented. Patient cleared for discharge to home with close followup with pcp and specialists. Marcus Figueroa MD Planned Discharge Date 08/20/24 DS: Providers Provider Date of admission: 08/15/24 19:20 Primary care physician: Vladislav Vazquez MD Admitting Provider: Marcus Moy MD Attending Provider on Admission: Marcus Figueroa MD Consults: 08/15/24 17:38 Consult to Gastroenterology Stat Comment: GIB Consulting Provider: Mayur Mckeon 08/16/24 14:03 Consult to Infectious Diseases Routine Comment: Hepatitis C, Liver lesion Consulting Provider: Toribio Mims Attending Provider on DC: Ziggy Renner MD Discharging Provider: Ziggy Renner MD DS: Diagnosis Problem List Completed Was Problem List Reviewed/Reconciled?: Yes Hospital Course Hospital Course Hospital course: 63-year-old male with past medical history of polysubstance use disorder, alcohol use disorder presenting to the ED on 08/15 with hematemesis and melena. In the ED, patient was afebrile, tachycardic 101, blood pressure 106/70, respiratory rate of 16, saturating 100% on room air. Pertinent lab findings included hemoglobin of 8.1. CT abdomen pelvis showed cirrhosis, possible liver lesion measuring 30 mm, nonobstructing bilateral renal calculi. Patient was started on octreotide drip along with 80 mg of Protonix, gastroenterology was consulted and the patient was admitted for upper GI bleed. On 08/16 patient completed an upper endoscopy which showed grade 2 esophageal varices which were banded, gastritis with hemorrhage. Patient was started on clear liquid diet and 5 days of octreotide drip were initiated. MRI of the abdomen was ordered to rule out liver lesion which was negative. Patient was hepatitis C positive as such infectious disease was consulted but no treatment was initiated as treatment is very expensive. Patient was told about the diagnosis and told to follow-up outpatient. Patient also had elevated AFP which could be secondary to testicular mass and this was relayed to the patient who had a clear understanding of importance to follow-up outpatient. Patient's hemoglobin and hematocrit remained stable and monitored throughout the days that he was admitted in the hospital. During hospitalization, it was noted on telemetry that the patient was having accelerated junctional rhythm likely secondary to the octreotide infusion; moreover, patient was alerted to follow-up outpatient for possible cardiology referral. Patient symptomatically improved and denied having any new episodes of melena or hematochezia/hematemesis while in the hospital but he will follow-up with gastroenterology outpatient for colonoscopy. Patient will be discharged with the following strict instructions. Please follow-up with your PCP within 1 to 2 weeks of discharge Please take propranolol 10mg by mouth twice a day for esophageal varice prophylaxis Please ask your PCP for cardiology referral for Accelerated Junctional Rhythm noted during hospitaliziation Please ask your PCP regarding possible testicular mass as your AFP levels were elevated Please follow-up with gastroenterology, Dr. Mckeon, for scheduling of a colonoscopy Completely stop drinking alcohol as this will help prevent progression of cirrhosis and lower your risk of rebleeding Ask your PCP regarding your hepatitis C infection and treatment modalities for it If your symptoms worsen or if you develop new chest pain, shortness of breath, dizziness, bleeding - please come back to the ED immediately Hospital Diagnosis: #Upper GI Bleed #Esophageal varices secondary to cirrhosis, alcohol induced #Acute blood loss anemia #Symptomatic anemia #Cirrhosis secondary to alcohol use disorder #Hepatitis C positive #Alcohol use disorder #Hypothyroidism #Possible testicular tumor? Ziggy Renner, PGY-1 Status at Discharge Overall status at discharge: patient is progressing back to baseline Time Spent with Patient Time attestation: Total time spent providing and/or coordinating discharge services: 45 minutes Time spent: Greater than 30 minutes Exam Vital Signs Temp Pulse Resp BP Pulse Ox O2 Del Method O2 Flow Rate 97.1 F 72 15 109/53 L 98 Room Air 3 08/20/24 08:00 08/20/24 12:00 08/20/24 08:00 08/20/24 08:00 08/20/24 08:00 08/20/24 08:00 08/17/24 16:00 Narrative Exam Physical Exam: Constitutional: Well nourished and in no acute distress CVS: RRR, S1 and S2 present, no murmurs, rubs or gallops . RESP: CTAB, no SOB, no rales, rhonchi or wheezing. No respiratory Distress GI: Normal BS, Nontender/Nondistended. MSK: Full range of motion, No trauma or deformities or masses. Skin: Warm to touch, Dry. No rashes or lesions. No hematomas Neuro: flare maker II-XII grossly intact. Sensation grossly intact. Psych: (AAO) x3 . Appropriate mood and affect. Discharge Plan Plan Patient Disposition: HOME (Self Care) Patient condition on transfer: Stable Care Plan Goals: Please follow-up with your PCP within 1 to 2 weeks of discharge Please take propranolol 10mg by mouth twice a day for esophageal varice prophylaxis Please ask your PCP for cardiology referral for Accelerated Junctional Rhythm noted during hospitaliziation Please follow-up with gastroenterology, Dr. Mckeon, for scheduling of a colonoscopy Completely stop drinking alcohol as this will help prevent progression of cirrhosis and lower your risk of rebleeding Ask your PCP regarding your hepatitis C infection and treatment modalities for it If your symptoms worsen or if you develop new chest pain, shortness of breath, dizziness, bleeding - please come back to the ED immediately Prescriptions/Referrals Prescriptions/Med Rec: New propranolol 10 mg tablet 10 mg PO BID 30 Days Qty: 60 0RF Referrals: Vladislav Vazquez MD [Primary Care Provider] - Mayur Mckeon MD [Physician] - Patient/Caregiver Discharge Instructions Other Discharge Diet Instructions: Avoid alcohol, as it can increase the risk of bleeding. Limit fatty and fried foods, as they can put stress on the liver. Avoid spicy and acidic foods, which can irritate the esophagus. Eat small, frequent meals instead of large ones. Chew food thoroughly before swallowing. Education Materials: Bleeding Gastrointestinal, Upper GI Endoscopy, Understanding Cirrhosis Print Language: Gren[place] Stand Alone Forms: Radhika Award Info., Patient Portal Info Letter Discharge Order Discharge Orders: Discharge (Routine); Ordered 08/20/24 Ordered By: Ziggy Renner Quality Discharge Quality Measures VTE prophylaxis
== END 2024-08-20 14:39 | disposition home or self-care (01) | DRG 432 ==
LOC: SERX 18:19 → SERHOLD 19:29 → S3NX 08-16 06:18
PROVIDERS: Internal Medicine Infectious Disease; Nurse Practitioner Family; Specialist; Student in an Organized Health Care Education/Training Program; Admitting Provider Internal Medicine; Emergency Provider Emergency Medicine; PCP Family Medicine; Visit Provider Student in an Organized Health Care Education/Training Program
PROC: (CPT 43239; principal; 2024-08-16 08:30)
DX: K70.31 Alcoholic cirrhosis of liver with ascites (principal); I85.11 Secondary esophageal varices with bleeding; K29.71 Gastritis, unspecified, with bleeding; D62 Acute posthemorrhagic anemia; K22.10 Ulcer of esophagus without bleeding; K76.6 Portal hypertension; I82.621 Acute embolism and thrombosis of deep veins of right upper extremity; K80.20 Calculus of gallbladder without cholecystitis without obstruction; B19.20 Unspecified viral hepatitis C without hepatic coma; F10.10 Alcohol abuse, uncomplicated; D35.2 Benign neoplasm of pituitary gland; I95.9 Hypotension, unspecified; E03.9 Hypothyroidism, unspecified; Z63.4 Disappearance and death of family member; Z87.891 Personal history of nicotine dependence
CPT/HCPCS: 36415; 74176; 74183; 80053; 80061; 80074; 82105; 83036; 83540; 83550; 83735; 84100; 84439; 84443; 85014; 85018; 85025; 85046; 85610; 85730; 86703; 86850; 86900; 86901; 86923; 93005; 93225; 93971; 96374; 99285; A4649; A4699; A9579; J0696; J1200; J2250; J2354; J2470; J3010; J3475; J3490; J7050; P9016; A9270